=== PATIENT | female | born 1990 | race Caucasian/White ===

== ENCOUNTER 2023-04-09 13:30 | Emergency (ER) | payer BC, OTHER, SELFPAY ==
[2023-04-09 13:37] VITALS: BP 162/98; PULSE 80; RESP 16; TEMP 37.2; O2SAT 100; BMI 37.0
--- NOTE | 2023-04-09 14:28 | US_ITS ---
[place] [id number] Patient Name: ANH CASAREZ MRN: [id number] date: 1990 Sex: F Assigned Patient Location: ER Current Patient Location: ER Accession/Order Number: [id number] Exam Date: 04/09/2023 14:30 Report Date: 04/09/2023 15:08 At the request of: ELIGIO VAZQUEZ Procedure: US OB transvaginal PROCEDURE: US OB transvaginal, 04/09/2023 2:30 PM EDT CLINICAL INDICATIONS: Encounter for first trimester , vaginal bleeding today 5 para 3 AB 1 LMP 03/07/2023 Expected gestational age by LMP: 4 weeks 5 days Expected LUPE by LMP: 12/12/2023 COMPARISON: None TECHNIQUE: Transvaginal first trimester obstetric sonogram, grayscale color and spectral assessment. FINDINGS: Uterus: Normal sonographic morphology. 8.2 cm longitudinally. Endometrial echo complex 0.7 cm. No sign of intrauterine is evident. A focal uterine abnormality is not evident. No pelvic free fluid. Maternal right ovary: 3.6 x 2.4 x 1.9 cm, volume 8 mL. Subcentimeter follicles seen, normal sonographic morphology. Maternal left ovary: 3.8 x 1.3 x 3.0 cm, volume 8 mL. Subcentimeter follicles seen. Normal sonographic morphology. No maternal pelvic mass. IMPRESSION: 1. Normal maternal uterine and ovarian sonographic morphology 2. uncertain location. There is no sign of intrauterine intrauterine documented. Differential considerations include too early to confirm by sonography, complete spontaneous , ectopic . Correlation with serial quantitative beta-hCG and follow-up sonography. 3. No maternal pelvic mass or free fluid Electronically authenticated by: BRAXTON BLANDON Date: 04/09/2023 15:08
--- NOTE | 2023-04-09 15:05 | PC.NURSE ---
Pt and friend back to room 8, no changes in previous assessment and no additional complaints, test's ordered complete and waiting for all tests results, gait steady to room.
[2023-04-09 15:22] LABS: Basophils Absolute Auto 0.1 10^3/uL (0.0-0.1); Basophils Percent Auto 0.7 % (0.2-2.0); Eosinophils Absolute Auto 0.3 10^3/uL (0.0-0.7); Eosinophils Percent Auto 2.2 % (0.9-7.0); Hematocrit 47.5 % (36.0-48.0); Hemoglobin 15.9 g/dL (12.0-16.0); Immature Granulocytes Abs Auto 0.11 10^3/uL (0.00-0.03); Lymphocytes Absolute Auto 2.9 10^3/uL (1.2-3.8); Lymphocytes Percent Auto 25.8 % (20.5-60.0); Mean Corpuscular HGB Conc 33.5 g/dL (29.9-35.2); Mean Corpuscular Hemoglobin 30.4 pg (26.7-34.0); Mean Corpuscular Volume 90.8 fL (81.0-99.0); Mean Platelet Volume 9.9 fL (9.5-13.5); Monocytes Absolute Auto 0.7 10^3/uL (0.3-0.8); Monocytes Percent Auto 6.5 % (1.7-12.0); Neutrophils Absolute Auto 7.2 10^3/uL (1.4-6.5); Neutrophils Percent Auto 63.8 % (43.0-75.0); Platelet Count 276 10^3/uL (150-450); Red Blood Count 5.23 10^6/uL (4.20-5.40); Red Cell Distribution Width 15.9 % (11.0-15.0); White Blood Count 11.3 10^3/uL (4.0-11.0)
[2023-04-09 15:23] LABS: Bilirubin Urine NEGATIVE (NEGATIVE); Blood Urine MODERATE (NEGATIVE); Clarity Urine CLEAR (CLEAR); Color Urine LT. YELLOW (YELLOW); Glucose Urine UA NEGATIVE (NEGATIVE); Ketones Urine NEGATIVE (NEGATIVE); Leukocyte Esterase Urine TRACE (NEGATIVE); Nitrite Urine NEGATIVE (NEGATIVE); Protein Urine NEGATIVE (NEG/TRACE); Specific Gravity Urine <=1.005 (1.005-1.025); Urobilinogen Urine 0.2 EU/dL (0.2-1.0)
[2023-04-09 15:27] LABS: Urine Microscopic Indicated YES
[2023-04-09 15:40] LABS: Bacteria Urine NONE SEEN #/HPF (NONE SEEN); Cast Seen? NONE SEEN #/LPF (NONE SEEN); Crystals Seen? None Seen #/HPF (None Seen); Mucus Urine NONE SEEN (NONE SEEN); RBC Urine 0-2 #/HPF (0-2); Squamous Epithelial Cell Urine NONE SEEN #/LPF (NONE/RARE); Urine Culture Indicated NO; WBC Urine NONE SEEN #/HPF (NONE SEEN)
[2023-04-09 15:54] LABS: Alanine Aminotransferase 21 U/L (14-59); Albumin Level 4.1 g/dL (3.4-5.0); Alkaline Phosphatase 73 U/L (46-116); Anion Gap 12.9; Aspartate Amino Transferase 13 U/L (15-37); BUN Creatinine Ratio 19.8; Bilirubin Total 0.2 mg/dL (0.2-1.0); Calcium 9.4 mg/dL (8.5-10.1); Carbon Dioxide 26.6 mmol/L (21.0-32.0); Chloride 102 mmol/L (98-107); Estimated GFR (African America >60 (>=60); Estimated GFR (Non-African Ame >60 (>=60); Globulin 4.1 g/dL; Glucose 88 mg/dL (74-106); HCG Quantitative 225 mIU/mL; Potassium 3.5 mmol/L (3.5-5.1); Sodium 138 mmol/L (136-145); Total Protein 8.2 g/dL (6.4-8.2)
--- NOTE | 2023-04-09 16:16 | ED.FEMALEGU1 ---
HPI - Female Genitourinary General Chief complaint: Urogenital-Female Stated complaint: 5 WEEKS PREGENCY ISSUES Time Seen by Provider: 04/09/23 14:28 Source: patient Mode of arrival: walk-in History of Present Illness HPI Narrative: He presents to the emergency department complaining of vaginal spotting. Patient states she started spotting last night. She thinks she is approximate 5 weeks . Last menstrual period is unknown but thinks is around 5 weeks ago. She denies any abdominal pain. She does not have an HEMATOLOGIST. Her primary care doctor is Dr. Mcmahan. She does not know what his blood type. She denies any fever, chills, or cough. She denies any chest pain, shortness of breath. She denies any flank pain, hematuria, dysuria. She denies any nausea, vomiting, diarrhea, constipation. She denies any vaginal discharge.She denies any history of STDs. Related Data Allergies Allergy/AdvReac Type Severity Reaction Status Date / Time No Known Drug Allergies Allergy Verified 04/09/23 13:37 Review of Systems ROS Status of ROS 10 or more systems reviewed and unremarkable except as noted in history and below Exam Narrative Exam Narrative: Nurses notes and vital signs reviewed and patient is not hypoxic. General: Nontoxic, Well-appearing and in no apparent distress. Skin: Warm, dry, no pallor noted. No Rash Head: Normocephalic, atraumatic. Neck: Supple, non-tender. Eye: Pupils are equal, round and EOMI. No scleral icterus. Ears, Nose, Mouth, and Throat: TM clear, no posterior oropharynx erythema or nasal mucosal hypertrophy, uvula is mid-line Oral mucosa is moist Cardiovascular: Regular Rate and Rhythm without murmur, gallop or rub. Respiratory: No accessory muscle use or respiratory distress. Lungs are clear to auscultation, no wheezing, rales or rhonchi Chest Wall: no tenderness Back: No midline thoracic or lumbar vertebral tenderness. No CVA tenderness Musculoskeletal: normal ROM, no calf or popliteal tenderness, no lower extremity edema/swelling GI: Abdomen is soft, non-distended. Normal bowel sounds. No masses appreciated. No tenderness to palpation. No rebound, guarding, or rigidity noted. Neurological: A&O x4. No cranial nerve dysfunction observed. No truncal ataxia. Moves all extremities. Sensation intact. Psychiatric: Cooperative and interactive. Normal mood and affect. Constitutional Vital Signs - 24 hr 04/09/23 13:37 Temperature 99.0 F Pulse Rate [Monitor] 80 Respiratory Rate 16 Blood Pressure [Left Arm] 162/98 H Pulse Oximetry 100 Oxygen Delivery Method Room Air Course Vital Signs Vital signs: Vital Signs Temperature 99.0 F 04/09/23 13:37 Pulse Rate 80 04/09/23 13:37 Respiratory Rate 16 04/09/23 13:37 Blood Pressure 162/98 H 04/09/23 13:37 Pulse Oximetry 100 04/09/23 13:37 Oxygen Delivery Method Room Air 04/09/23 13:37 Temperature 99.0 F 04/09/23 13:37 Pulse Rate 80 04/09/23 13:37 Respiratory Rate 16 04/09/23 13:37 Blood Pressure 162/98 H 04/09/23 13:37 Pulse Oximetry 100 04/09/23 13:37 Oxygen Delivery Method Room Air 04/09/23 13:37 MDM - Female Genitourinary MDM Narrative Medical decision making narrative: Blood work was done. The patient's Rh is positive. The patient is hemodynamically stable. All results were discussed with patient. Patient is advised to have pelvic rest, follow-up with primary care doctor and HEMATOLOGIST. Given a prescription to get a quantitative level at 48 hours. She is to return to the emergency department with any problems concerns as discussed. At this time the patient is without objective evidence of an acute process requiring hospitalization or inpatient management. The patient has remained hemodynamically stable. No additional indication for emergent studies at this time. I answered all questions. Discussed discharge instructions including standard anticipatory guidance and what should prompt a return to the emergency department, including if they get worse are not getting better or develops any new or concerning symptoms. I've given them specific time frame in which to follow-up, and who to follow-up with. The patient demonstrates understanding. Patient is nontoxic and stable for discharge with outpatient follow-up. This note was created with the assistance of a speech recognition program. Although the intention is to generate documents that actually reflects the content of the visit, no guarantees can be provided that every mistake has been identified and corrected by editing. Lab Data Attestation: I reviewed the patient's lab results. Labs: Lab Results 04/09/23 04/09/23 04/09/23 Range/Units 14:45 14:50 15:28 WBC 11.3 H (4.0-11.0) 10^3/uL RBC 5.23 (4.20-5.40) 10^6/uL Hgb 15.9 (12.0-16.0) g/dL Hct 47.5 (36.0-48.0) % MCV 90.8 (81.0-99.0) fL MCH 30.4 (26.7-34.0) pg MCHC 33.5 (29.9-35.2) g/dL RDW 15.9 H (11.0-15.0) % Plt Count 276 (150-450) 10^3/uL MPV 9.9 (9.5-13.5) fL Neut % (Auto) 63.8 (43.0-75.0) % Lymph % (Auto) 25.8 (20.5-60.0) % Zavala % (Auto) 6.5 (1.7-12.0) % Eos % (Auto) 2.2 (0.9-7.0) % Baso % (Auto) 0.7 (0.2-2.0) % Neut # (Auto) 7.2 H (1.4-6.5) 10^3/uL Lymph # (Auto) 2.9 (1.2-3.8) 10^3/uL Zavala # (Auto) 0.7 (0.3-0.8) 10^3/uL Eos # (Auto) 0.3 (0.0-0.7) 10^3/uL Baso # (Auto) 0.1 (0.0-0.1) 10^3/uL Abs Immat Gran (auto) 0.11 H (0.00-0.03) 10^3/uL Imm/Tot Granulo (auto) 1.0 H (0.0-0.5) % Sodium 138 (136-145) mmol/L Potassium 3.5 (3.5-5.1) mmol/L Chloride 102 (98-107) mmol/L Carbon Dioxide 26.6 (21.0-32.0) mmol/L Anion Gap 12.9 BUN 16.0 (7.0-18.0) mg/dL Creatinine 0.81 (0.55-1.02) mg/dL Est GFR ( Amer) >60 (>=60) Est GFR (Non-Af Amer) >60 (>=60) BUN/Creatinine Ratio 19.8 Glucose 88 (74-106) mg/dL Calcium 9.4 (8.5-10.1) mg/dL Total Bilirubin 0.2 (0.2-1.0) mg/dL AST 13 L (15-37) U/L ALT 21 (14-59) U/L Alkaline Phosphatase 73 (46-116) U/L Total Protein 8.2 (6.4-8.2) g/dL Albumin 4.1 (3.4-5.0) g/dL Globulin 4.1 g/dL Albumin/Globulin Ratio 1.0 HCG, Quant 225 mIU/mL Urine Color Lt. yellow (YELLOW) Urine Clarity Clear (CLEAR) Urine pH 6.0 (5.0-9.0) Ur Specific [place] <=1.005 A (1.005-1.025) Urine Protein Negative (NEG/TRACE) mg/dL Urine Glucose (UA) Negative (NEGATIVE) mg/dL Urine Ketones Negative (NEGATIVE) mg/dL Urine Occult Blood Moderate A (NEGATIVE) Urine Nitrite Negative (NEGATIVE) Urine Bilirubin Negative (NEGATIVE) Urine Urobilinogen 0.2 (0.2-1.0) EU/dL Ur Leukocyte Esterase Trace A (NEGATIVE) Urine RBC 0-2 (0-2) #/HPF Urine WBC None seen (NONE SEEN) #/HPF Ur Squamous Epith Cells None seen (NONE/RARE) #/LPF Urine Crystals None seen (None Seen) #/HPF Urine Bacteria None seen (NONE SEEN) #/HPF Urine Casts None seen (NONE SEEN) #/LPF Urine Mucus None seen (NONE SEEN) Ur Culture Indicated? No Blood Type A Positive Discharge Plan Discharge Chief Complaint: Urogenital-Female Clinical Impression: Threatened Patient Disposition: Home, Self-Care Time of Disposition Decision: 16:16 Condition: Good Mode of Transportation: Private Vehicle Instructions: Threatened Miscarriage (ED) Additional Instructions: Get the Repeat lab in 2 days as instructed. Follow-up with HEMATOLOGIST as discussed. pelvic rest. Stand Alone Forms: Portal Instructions Referrals: Yasir Mcmahan MD [Primary Care Provider] - 1 week Discharge Date/Time: 04/09/23 16:34
== END 2023-04-09 16:34 | disposition home or self-care (01) ==
PROVIDERS: Emergency Provider Emergency Medicine; PCP Family Medicine
DX: O20.0 Threatened abortion (principal); Z3A.01 Less than 8 weeks gestation of pregnancy
CPT/HCPCS: 36415; 76817; 80053; 81003; 81015; 84702; 85025; 86900; 86901; 99284

== ENCOUNTER 2023-04-11 10:32 | Outpatient (OUT) | payer BC, OTHER, SELFPAY ==
[2023-04-11 11:13] LABS: HCG Quantitative 391 mIU/mL
== END 2023-04-11 10:33 ==
LOC: LAB 10:34
PROVIDERS: PCP Family Medicine; Visit Provider Obstetrics & Gynecology
DX: O46.90 Antepartum hemorrhage, unspecified, unspecified trimester (principal); Z3A.00 Weeks of gestation of pregnancy not specified
CPT/HCPCS: 36415; 84702

== ENCOUNTER 2023-04-13 10:29 | Outpatient (RCR) | payer BC, OTHER, SELFPAY ==
[2023-04-13 11:33] LABS: HCG Quantitative 1156 mIU/mL
== END 2023-05-04 16:01 | disposition home or self-care (01) ==
LOC: LAB 10:29
PROVIDERS: PCP Family Medicine; Visit Provider Obstetrics & Gynecology
DX: O46.90 Antepartum hemorrhage, unspecified, unspecified trimester (principal)
CPT/HCPCS: 36415; 84702

== ENCOUNTER 2023-04-22 09:04 | Emergency (ER) | payer BC, OTHER, SELFPAY ==
[2023-04-22 09:09] VITALS: BP 146/88; PULSE 86; RESP 16; TEMP 37.1; O2SAT 98; BMI 38.1
--- NOTE | 2023-04-22 09:25 | ED_ITS ---
HPI - General Adult General Stated complaint: ISSUES Time Seen by Provider: 04/22/23 09:12 Source: patient Mode of arrival: walk-in Limitations: no limitations History of Present Illness HPI narrative: 32-year-old female who is A1 and had her last period just over eight weeks ago presents to the emergency department for vaginal bleeding. She's been having this essentially every day for numerous weeks. She continues to have this and comes back to the emergency department to be rechecked. She had a beta hCG titer of 225 on April 09, 391 on April 11, and 1156 on April 13. She complains of some minimal left lower abdominal pain. She has her 1st appointment with her MEDIA CONSULTANT [employer] on May 12. No trauma or fever. At times the bleeding is heavy. Sometimes it's manager field service but she has bleeding every day. Related Data Allergies Allergy/AdvReac Type Severity Reaction Status Date / Time No Known Drug Allergies Allergy Verified 04/09/23 13:37 Review of Systems ROS Narrative A ten point review of systems is negative except as noted above. PFSH PFSH Social History Smoking status: Current every day smoker Exam Narrative Exam Narrative: Nurses note and vital signs reviewed and patient is not hypoxic. General: The patient appears well and in no apparent distress. Patient is resting comfortably on cart. Skin: Warm, dry, no pallor noted. There is no rash noted. Head: Normocephalic, atraumatic Eye: Normal conjunctiva, no drainage Ears, Nose, Mouth, and Throat: oral mucosa is moist. Nares patent. Cardiovascular: Regular Rate and Rhythm Respiratory: Patient is in no distress, no accessory muscle use, lungs are clear to auscultation, no wheezing, rales or rhonchi Back: non-tender GI: minimal tenderness in the left lower quadrant Musculoskeletal: The patient has no evidence of calf tenderness, no pitting edema, symmetrical pulses noted bilaterally Neurological: A&O, normal speech Psychiatric: Cooperative Constitutional Vital Signs - 24 hr 04/22/23 09:09 Temperature 98.7 F Pulse Rate [Monitor Radial] 86 Respiratory Rate 16 Blood Pressure [Left Arm] 146/88 H Pulse Oximetry 98 Oxygen Delivery Method Room Air Course Vital Signs Vital signs: Vital Signs Temperature 98.7 F 04/22/23 09:09 Pulse Rate 86 04/22/23 09:09 Respiratory Rate 16 04/22/23 09:09 Blood Pressure 146/88 H 06/23/23 09:09 Pulse Oximetry 98 04/22/23 09:09 Oxygen Delivery Method Room Air 04/22/23 09:09 Temperature 98.7 F 04/22/23 09:09 Pulse Rate 86 04/22/23 09:09 Respiratory Rate 16 04/22/23 09:09 Blood Pressure 146/88 H 04/22/23 09:09 Pulse Oximetry 98 04/22/23 09:09 Oxygen Delivery Method Room Air 04/22/23 09:09 Medical Decision Making MDM Narrative Medical decision making narrative: Today's hCG titer is 11,269 which is up from 1156 on April 13. Ultrasound shows IUP without visible heartbeat. Findings are discussed thoroughly with the patient's [employer] and the patient. She will be discharged home with follow-up in the office. She'll return for any worsening symptoms. Treatment diagnosis and follow up are discussed thoroughly with the patient. Blood type is A positive. Differential Diagnosis Differential Diagnosis: intrauterine , ectopic , threatened miscarriage, miscarri Medical Records Medical records reviewed: Yes I reviewed the patient's medical records Lab Data Lab results reviewed: Yes I reviewed the patient's lab results Labs: Lab Results 04/22/23 Range/Units 09:28 WBC 8.1 (4.0-11.0) 10^3/uL RBC 5.14 (4.20-5.40) 10^6/uL Hgb 15.6 (12.0-16.0) g/dL Hct 46.4 (36.0-48.0) % MCV 90.3 (81.0-99.0) fL MCH 30.4 (26.7-34.0) pg MCHC 33.6 (29.9-35.2) g/dL RDW 15.7 H (11.0-15.0) % Plt Count 217 (150-450) 10^3/uL MPV 9.7 (9.5-13.5) fL Neut % (Auto) 63.8 (43.0-75.0) % Lymph % (Auto) 23.9 (20.5-60.0) % Pender % (Auto) 8.1 (1.7-12.0) % Eos % (Auto) 2.1 (0.9-7.0) % Baso % (Auto) 0.7 (0.2-2.0) % Neut # (Auto) 5.2 (1.4-6.5) 10^3/uL Lymph # (Auto) 1.9 (1.2-3.8) 10^3/uL Pender # (Auto) 0.7 (0.3-0.8) 10^3/uL Eos # (Auto) 0.2 (0.0-0.7) 10^3/uL Baso # (Auto) 0.1 (0.0-0.1) 10^3/uL Abs Immat Gran (auto) 0.11 H (0.00-0.03) 10^3/uL Imm/Tot Granulo (auto) 1.4 H (0.0-0.5) % Sodium 136 (136-145) mmol/L Potassium 4.3 (3.5-5.1) mmol/L Chloride 102 (98-107) mmol/L Carbon Dioxide 26.1 (21.0-32.0) mmol/L Anion Gap 12.2 BUN 10.0 (7.0-18.0) mg/dL Creatinine 0.69 (0.55-1.02) mg/dL Est GFR ( Amer) >60 (>=60) Est GFR (Non-Af Amer) >60 (>=60) BUN/Creatinine Ratio 14.5 Glucose 104 (74-106) mg/dL Calcium 9.0 (8.5-10.1) mg/dL HCG, Quant 82394 mIU/mL Discharge Plan Discharge Clinical Impression: Threatened miscarriage Time of Disposition Decision: 11:35 Mode of Transportation: Private Vehicle Instructions: Threatened Miscarriage (ED) Additional Instructions: no intercourse or heavy work Stand Alone Forms: Portal Instructions Referrals: Yasir Mcmahan MD [Primary Care Provider] - 1 week
[2023-04-22 09:33] LABS: Basophils Absolute Auto 0.1 10^3/uL (0.0-0.1); Basophils Percent Auto 0.7 % (0.2-2.0); Eosinophils Absolute Auto 0.2 10^3/uL (0.0-0.7); Eosinophils Percent Auto 2.1 % (0.9-7.0); Hematocrit 46.4 % (36.0-48.0); Hemoglobin 15.6 g/dL (12.0-16.0); Immature Granulocytes Abs Auto 0.11 10^3/uL (0.00-0.03); Immature Granulocytes Pct Auto 1.4 % (0.0-0.5); Lymphocytes Absolute Auto 1.9 10^3/uL (1.2-3.8); Lymphocytes Percent Auto 23.9 % (20.5-60.0); Mean Corpuscular HGB Conc 33.6 g/dL (29.9-35.2); Mean Corpuscular Hemoglobin 30.4 pg (26.7-34.0); Mean Corpuscular Volume 90.3 fL (81.0-99.0); Mean Platelet Volume 9.7 fL (9.5-13.5); Monocytes Absolute Auto 0.7 10^3/uL (0.3-0.8); Monocytes Percent Auto 8.1 % (1.7-12.0); Neutrophils Absolute Auto 5.2 10^3/uL (1.4-6.5); Neutrophils Percent Auto 63.8 % (43.0-75.0); Platelet Count 217 10^3/uL (150-450); Red Blood Count 5.14 10^6/uL (4.20-5.40); Red Cell Distribution Width 15.7 % (11.0-15.0); White Blood Count 8.1 10^3/uL (4.0-11.0)
[2023-04-22 10:09] LABS: Anion Gap 12.2; BUN Creatinine Ratio 14.5; Carbon Dioxide 26.1 mmol/L (21.0-32.0); Chloride 102 mmol/L (98-107); Estimated GFR (African America >60 (>=60); Estimated GFR (Non-African Ame >60 (>=60); Glucose 104 mg/dL (74-106); HCG Quantitative 11269 mIU/mL; Potassium 4.3 mmol/L (3.5-5.1); Sodium 136 mmol/L (136-145)
--- NOTE | 2023-04-22 10:11 | US_ITS ---
[address] [address] Patient Name: ANH CASAREZ MRN: [id number] date: 1990 Sex: F Assigned Patient Location: ER Current Patient Location: ER Accession/Order Number: [id number] Exam Date: 04/22/2023 10:12 Report Date: 04/22/2023 11:15 At the request of: PATSY GRIMALDO Procedure: US OB transvaginal PROCEDURE: US OB transvaginal, 04/22/2023 10:12 AM EDT CLINICAL INDICATIONS: Encounter for first trimester , vaginal bleeding for 2 weeks 5 para 3 Uncertain LMP COMPARISON: 04/09/2023 TECHNIQUE: Transvaginal first trimester obstetric sonogram, grayscale color assessment. FINDINGS: Intrauterine gestational sac, embryonic pole, normal yolk sac are evident. Convincing cardiac activity could not be documented by sonographic surveillance, M mode Doppler. Mean gestational sac size: 1.43 cm Embryonic crown-rump length: 0.20 cm. Sonographic gestational age: 5 weeks 5 days +/- 3 days Sonographic LUPE: 12/18/2023 No significant perigestational hemorrhage. No focal maternal uterine abnormality is evident. 3.2 cm transvaginal cervical length, closed, trace fluid in the endocervical canal. Maternal right ovary: 3.1 x 2.1 x 2.2 cm, volume 8 mL. Subcentimeter follicle seen. Normal sonographic morphology. Maternal left ovary: 3.6 x 1.8 x 2.4 cm volume 8 mL. A 2.0 cm complex maternal left ovarian corpus luteal cyst is favored. IMPRESSION: 1. Single intrauterine , uncertain viability. There is interval development of intrauterine gestational sac, normal yolk sac, embryonic pole. Cardiac activity could not be documented. 11 day follow-up sonography recommended in this regard. 2. Embryonic crown-rump length of 0.2 cm consistent with 5 week 5 day gestation +/- 5 days 3. Sonographic LUPE 12/18/2023 4. No perigestational hemorrhage. Trace fluid in the endocervical canal. 5. Normal maternal right ovarian sonographic morphology 6. Complex 2.0 cm maternal left ovarian corpus luteal cyst. Electronically authenticated by: BRAXTON BLANDON Date: 04/22/2023 11:15
[2023-04-22 11:42] VITALS: BP 128/84; PULSE 79; RESP 16; O2SAT 97
== END 2023-04-22 11:47 | disposition home or self-care (01) ==
PROVIDERS: Emergency Provider Emergency Medicine; PCP Family Medicine
DX: O20.0 Threatened abortion (principal); Z3A.01 Less than 8 weeks gestation of pregnancy; F17.210 Nicotine dependence, cigarettes, uncomplicated
CPT/HCPCS: 36415; 76817; 80048; 84702; 85025; 99284

== ENCOUNTER 2023-04-24 12:11 | Emergency (ER) | payer BC, OTHER, SELFPAY ==
[2023-04-24 12:21] VITALS: BP 138/90; PULSE 89; RESP 18; TEMP 36.4; O2SAT 100; BMI 38.1
--- NOTE | 2023-04-24 12:31 | US_ITS ---
The [address] [address] Patient Name: ANH CASAREZ MRN: [id number] date: 1990 Sex: F Assigned Patient Location: ED.MAIN Current Patient Location: ER Accession/Order Number: [id number] Exam Date: 04/24/2023 13:24 Report Date: 04/24/2023 14:27 At the request of: PATSY GRIMALDO Procedure: US OB <= 14 weeks fetus PELVIC ULTRASOUND: 04/24/2023 11:21 AM PDT HISTORY: bleeding. TECHNIQUE: Real-time endovaginal sonography of the pelvis was performed using grayscale and Doppler ultrasound. COMPARISON: Ultrasound exam 04/22/2023 and 04/09/2023. FINDINGS: UTERUS/ENDOMETRIUM: -Significant interval decrease in size of the gestational sac compared with 04/22/2023 which now measures 4 mm in greatest dimension, previously mean sac diameter of 14 mm. Yolk sac and embryonic pole are normally visualized. -Trace fluid within the endometrium RIGHT OVARY: Normal appearance of the parenchyma and follicles. Size: 3.9 x 2.1 x 2.6 cm. Volume: 10.9 cc. No adnexal masses. The Doppler signal is within normal limits. LEFT OVARY: Normal appearance of the parenchyma and follicles. Size: 4.1 x 1.8 x 2.5 cm. Volume: 9.4 cc. No adnexal masses. The Doppler signal is within normal limits. PELVIC FLUID: No significant free fluid. IMPRESSION: Significantly decreased size of the gestational sac with fluid in the endometrium and loss of visualization of yolk sac and embryonic pole. Findings are diagnostic of failed . Electronically authenticated by: DAVE GUILLAUME Date: 04/24/2023 14:27
--- NOTE | 2023-04-24 12:46 | ED_ITS ---
HPI - General Chief complaint: Vaginal Bleeding Stated complaint: ISSUES 5WKS 5 DAYS Time Seen by Provider: 04/24/23 12:14 Source: patient Source comment: patient Mode of arrival: walk-in Limitations: no limitations History of Present Illness HPI Narrative: 32-year-old female presents for vaginal bleeding. She was seen here two days ago and had an hCG titer of eleven thousand. IVP was noted but no heartbeat because it was too early. Since then she's had continued bleeding and she came in here. No trauma or fever. The cramping is mild. Related Data Allergies Allergy/AdvReac Type Severity Reaction Status Date / Time No Known Drug Allergies Allergy Verified 04/09/23 13:37 Review of Systems ROS Narrative A ten point review of systems is negative except as noted above. PFSH PFSH Social History Smoking status: Current every day smoker Exam Narrative Exam Narrative: Nurses note and vital signs reviewed and patient is not hypoxic. General: The patient appears well and in no apparent distress. Patient is resting comfortably on cart. Skin: Warm, dry, no pallor noted. There is no rash noted. Head: Normocephalic, atraumatic Eye: Normal conjunctiva, no drainage Ears, Nose, Mouth, and Throat: oral mucosa is moist. Nares patent. Cardiovascular: Regular Rate and Rhythm Respiratory: Patient is in no distress, no accessory muscle use, lungs are clear to auscultation, no wheezing, rales or rhonchi Back: non-tender GI: soft and nontender Musculoskeletal: The patient has no evidence of calf tenderness, no pitting edema, symmetrical pulses noted bilaterally Neurological: A&O, normal speech Psychiatric: Cooperative Constitutional Vital Signs - 24 hr 04/24/23 12:21 04/24/23 13:56 Temperature 97.6 F Pulse Rate 77 Pulse Rate [Monitor] 89 Respiratory Rate 18 18 Blood Pressure 130/88 H Blood Pressure [Right Arm] 138/90 H Pulse Oximetry 100 99 Oxygen Delivery Method Room Air Course Vital Signs Vital signs: Vital Signs Temperature 97.6 F 04/24/23 12:21 Pulse Rate 89 04/24/23 12:21 Respiratory Rate 18 04/24/23 12:21 Blood Pressure 138/90 H 04/24/23 12:21 Pulse Oximetry 100 04/24/23 12:21 Oxygen Delivery Method Room Air 06/25/23 12:21 Temperature 97.6 F 04/24/23 12:21 Pulse Rate 77 04/24/23 13:56 Respiratory Rate 18 04/24/23 13:56 Blood Pressure 130/88 H 04/24/23 13:56 Pulse Oximetry 99 04/24/23 13:56 Oxygen Delivery Method Room Air 04/24/23 12:21 MDM - OB/Uterine Contractions MDM Narrative Medical decision making narrative: ultrasound per radiologist shows failed . 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 Treatment diagnosis and follow-up were discussed with the patient. Differential Diagnosis Differential diagnosis: Likely other (incomplete miscarriage, threatened miscarriage, complete miscarriage, bleeding in ) Discharge Plan Discharge Chief Complaint: Vaginal Bleeding Clinical Impression: Miscarriage Patient Disposition: Home, Self-Care Time of Disposition Decision: 14:35 Condition: Good Mode of Transportation: Private Vehicle Instructions: Miscarriage (ED) Stand Alone Forms: Portal Instructions Referrals: Yasir Mcmahan MD [Primary Care Provider] - 1 week
[2023-04-24 13:56] VITALS: BP 130/88; PULSE 77; RESP 18; O2SAT 99
== END 2023-04-24 14:45 | disposition home or self-care (01) ==
PROVIDERS: Emergency Provider Emergency Medicine; PCP Family Medicine
DX: O03.9 Complete or unspecified spontaneous abortion without complication (principal); F17.210 Nicotine dependence, cigarettes, uncomplicated
CPT/HCPCS: 76801; 99284

== ENCOUNTER 2023-09-05 09:30 | Emergency (ER) | payer BC, OTHER, SELFPAY ==
[2023-09-05] VITALS (8 sets, daily range): BP systolic 156–198; BP diastolic 102–142; PULSE 76–105; RESP 12–22; TEMP 37.4; O2SAT 92–97; BMI 37.5
--- NOTE | 2023-09-05 09:52 | ECG_ITS ---
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
--- NOTE | 2023-09-05 09:53 | ED.GENADUL1 ---
HPI - General Adult General Chief complaint: Recheck/Abnormal Lab/Rx Stated complaint: HIGH BLOOD PRESSURE LEVELS Time Seen by Provider: 09/05/23 09:44 Source: patient Mode of arrival: walk-in Limitations: no limitations History of Present Illness HPI narrative: 33-year-old female presents for high blood pressure. She has a long-standing history of hypertension but doesn't take medication for it. She was on a beta mary and didn't like the way it made her feel so she stopped taking it. She hasn't taken any medication for about a year. She doesn't complain of chest pain but occasionally feels dizzy when she is standing at work. Related Data Previous Rx's Medication Instructions Recorded lisinopril 10 mg tablet 10 mg PO DAILY #30 tabs 09/05/23 Allergies Allergy/AdvReac Type Severity Reaction Status Date / Time No Known Drug Allergies Allergy Verified 04/09/23 13:37 Review of Systems ROS Narrative A ten point review of systems is negative except as noted above. PFSH PFSH Social History Smoking status: Current every day smoker Exam Narrative Exam Narrative: Nurses note and vital signs reviewed and patient is not hypoxic. General: The patient appears well and in no apparent distress. Patient is resting comfortably on cart. Skin: Warm, dry, no pallor noted. There is no rash noted. Head: Normocephalic, atraumatic Eye: Normal conjunctiva, no drainage Ears, Nose, Mouth, and Throat: oral mucosa is moist. Nares patent. Cardiovascular: Regular Rate and Rhythm Respiratory: Patient is in no distress, no accessory muscle use, lungs are clear to auscultation, no wheezing, rales or rhonchi Back: non-tender GI: soft and nontender Musculoskeletal: The patient has no evidence of calf tenderness, no pitting edema, symmetrical pulses noted bilaterally Neurological: A&O, normal speech Psychiatric: Cooperative Constitutional Vital Signs, click to edit/add: Last Vital Signs Temp 99.3 F 09/05/23 09:37 Pulse 105 H 09/05/23 10:50 Resp 17 09/05/23 10:50 BP 156/102 H 09/05/23 10:48 Pulse Ox 95 09/05/23 10:50 O2 Del Method Room Air 09/05/23 09:37 Course Vital Signs Vital signs: Vital Signs Temperature 99.3 F 09/05/23 09:37 Pulse Rate 103 H 09/05/23 09:37 Respiratory Rate 22 09/05/23 09:37 Blood Pressure 182/110 H 09/05/23 09:37 Pulse Oximetry 97 09/05/23 09:37 Oxygen Delivery Method Room Air 09/05/23 09:37 Temperature 99.3 F 09/05/23 09:37 Pulse Rate 105 H 09/05/23 10:50 Respiratory Rate 17 09/05/23 10:50 Blood Pressure 156/102 H 09/05/23 10:48 Pulse Oximetry 95 09/05/23 10:50 Oxygen Delivery Method Room Air 09/05/23 09:37 Medical Decision Making MDM Narrative Medical decision making narrative: the patient presents with hypertension. She was given IV hydralazine and her blood pressure was coming down. She is being prescribed lisinopril and will call her PCP for blood pressure rechecked. Treatment diagnosis and follow-up were discussed with the patient. Differential Diagnosis Differential Diagnosis: hypertension, acute kidney injury Lab Data Lab results reviewed: Yes I reviewed the patient's lab results Labs: Lab Results 09/05/23 Range/Units 10:17 WBC 10.7 (4.0-11.0) 10^3/uL RBC 4.55 (4.20-5.40) 10^6/uL Hgb 13.9 (12.0-16.0) g/dL Hct 41.5 (36.0-48.0) % MCV 91.2 (81.0-99.0) fL MCH 30.5 (26.7-34.0) pg MCHC 33.5 (29.9-35.2) g/dL RDW 14.5 (11.0-15.0) % Plt Count 246 (150-450) 10^3/uL MPV 10.0 (9.5-13.5) fL Neut % (Auto) 63.7 (43.0-75.0) % Lymph % (Auto) 26.8 (20.5-60.0) % Divide % (Auto) 6.1 (1.7-12.0) % Eos % (Auto) 2.3 (0.9-7.0) % Baso % (Auto) 0.7 (0.2-2.0) % Neut # (Auto) 6.8 H (1.4-6.5) 10^3/uL Lymph # (Auto) 2.9 (1.2-3.8) 10^3/uL Divide # (Auto) 0.7 (0.3-0.8) 10^3/uL Eos # (Auto) 0.3 (0.0-0.7) 10^3/uL Baso # (Auto) 0.1 (0.0-0.1) 10^3/uL Abs Immat Gran (auto) 0.04 H (0.00-0.03) 10^3/uL Imm/Tot Granulo (auto) 0.4 (0.0-0.5) % Sodium 140 (136-145) mmol/L Potassium 3.2 L (3.5-5.1) mmol/L Chloride 104 (98-107) mmol/L Carbon Dioxide 28.0 (21.0-32.0) mmol/L Anion Gap 11.2 BUN 13.0 (7.0-18.0) mg/dL Creatinine 0.73 (0.55-1.02) mg/dL Est GFR ( Amer) >60 (>=60) Est GFR (Non-Af Amer) >60 (>=60) BUN/Creatinine Ratio 17.8 Glucose 117 H (74-106) mg/dL Calcium 8.6 (8.5-10.1) mg/dL ECG Data Attestation: I personally reviewed and interpreted this ECG as follows: (EKG on my interpretation shows normal sinus rhythm with no acute changes and a rate of 79.) Critical Care Time Critical Care Time Critical Care Time: Yes Total Critical Care Time: 35 Attestation: Due to the high probability of sudden and clinically significant deterioration in the patient's condition he/she required the highest level of my preparedness to intervene urgently I provided critical care time including documentation time, medication orders and management, reevaluation, vital sign assessment, ordering and reviewing of lab tests, ordering and reviewing of x-ray studies, and admission orders. Aggregate critical care time is 35 minutes including only time during which I was engaged in work directly related to his/her care and did not include time spent treating other patients simultaneously. Discharge Plan Discharge Chief Complaint: Recheck/Abnormal Lab/Rx Clinical Impression: Hypertension Patient Disposition: Home, Self-Care Time of Disposition Decision: 11:00 Condition: Good Mode of Transportation: Private Vehicle Prescriptions / Home Meds: New lisinopril 10 mg tablet 10 mg PO DAILY Qty: 30 0RF Instructions: Chronic Hypertension (ED), Low-Sodium Diet (ED) Additional Instructions: call PCP today for follow-up appointment for the next few days Stand Alone Forms: Portal Instructions Referrals: Yasir Mcmahan MD [Primary Care Provider] - 1 week
[2023-09-05 10:36] LABS: Basophils Absolute Auto 0.1 10^3/uL (0.0-0.1); Basophils Percent Auto 0.7 % (0.2-2.0); Eosinophils Absolute Auto 0.3 10^3/uL (0.0-0.7); Eosinophils Percent Auto 2.3 % (0.9-7.0); Hematocrit 41.5 % (36.0-48.0); Hemoglobin 13.9 g/dL (12.0-16.0); Immature Granulocytes Abs Auto 0.04 10^3/uL (0.00-0.03); Immature Granulocytes Pct Auto 0.4 % (0.0-0.5); Lymphocytes Absolute Auto 2.9 10^3/uL (1.2-3.8); Lymphocytes Percent Auto 26.8 % (20.5-60.0); Mean Corpuscular HGB Conc 33.5 g/dL (29.9-35.2); Mean Corpuscular Hemoglobin 30.5 pg (26.7-34.0); Mean Corpuscular Volume 91.2 fL (81.0-99.0); Monocytes Absolute Auto 0.7 10^3/uL (0.3-0.8); Monocytes Percent Auto 6.1 % (1.7-12.0); Neutrophils Absolute Auto 6.8 10^3/uL (1.4-6.5); Neutrophils Percent Auto 63.7 % (43.0-75.0); Platelet Count 246 10^3/uL (150-450); Red Blood Count 4.55 10^6/uL (4.20-5.40); Red Cell Distribution Width 14.5 % (11.0-15.0); White Blood Count 10.7 10^3/uL (4.0-11.0)
[2023-09-05] MEDS: HYDRALAZINE HCL 20 MG/ML VIAL 10 MG IVP (10:45)
[2023-09-05 10:53] LABS: Anion Gap 11.2; BUN Creatinine Ratio 17.8; Calcium 8.6 mg/dL (8.5-10.1); Chloride 104 mmol/L (98-107); Estimated GFR (African America >60 (>=60); Estimated GFR (Non-African Ame >60 (>=60); Glucose 117 mg/dL (74-106); Potassium 3.2 mmol/L (3.5-5.1); Sodium 140 mmol/L (136-145)
== END 2023-09-05 11:22 | disposition home or self-care (01) ==
PROVIDERS: Emergency Provider Emergency Medicine; PCP Family Medicine
DX: I10 Essential (primary) hypertension (principal); F17.210 Nicotine dependence, cigarettes, uncomplicated
CPT/HCPCS: 36415; 80048; 85025; 93005; 96374; 99284

== ENCOUNTER 2023-09-06 22:23 | Emergency (ER) | payer BC, OTHER, SELFPAY ==
[2023-09-06] VITALS (10 sets, daily range): BP systolic 141–163; BP diastolic 97–130; PULSE 84–102; RESP 12–19; TEMP 37; O2SAT 97; BMI 37.5
--- NOTE | 2023-09-06 23:31 | ECG_ITS ---
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
--- NOTE | 2023-09-06 23:31 | ED.DIZZY1 ---
HPI - Dizziness General Chief Complaint: Dizziness Stated Complaint: Hypertension Time Seen by Provider: 09/06/23 22:41 Source: patient Mode of arrival: walk-in History of Present Illness HPI Narrative: This 33 year old female with a history of hypertension, tobacco use and he was overweight presents for evaluation of dizziness with right hand and arm tingling. The patient was seen in this emergency department yesterday for evaluation of elevated blood pressure. She states that she was formally on a beta mary and she did not like the way that made her feel. She had called her family physician but cannot get in until September. She states that she was seen here yesterday and given a prescription for lisinopril. She took one yesterday and one again today. This evening when she was getting ready for work she started feeling dizzy and her right hand and arm became numb and tingly. She states she felt like she was going to pass out. She did not pass out at that time. She took her blood pressure and her blood pressure was in the 120s over 80s and her pulse was 113. She states this is very low for her. She denies any chest pain but states she did have some chest pain earlier in the day. She has no shortness of breath. She is feeling somewhat better after coming to the emergency department. Her dizziness has somewhat resolved. She denies any abdominal pain or back pain. She has no headache or neck pain. She has no slurred speech confusion or other neurologic deficits. Related Data Previous Rx's Medication Instructions Recorded lisinopril 10 mg tablet 10 mg PO DAILY #30 tabs 09/05/23 Allergies Allergy/AdvReac Type Severity Reaction Status Date / Time No Known Drug Allergies Allergy Verified 04/09/23 13:37 Review of Systems ROS Status of ROS 10 or more systems reviewed and unremarkable except as noted in history and below [facility] Social History Smoking status: Current every day smoker Exam Narrative Exam Narrative: Nurses note and vital signs reviewed and patient is not hypoxic. 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 There is no rash noted. Head: Normocephalic, atraumatic Eye: Normal conjunctiva, no drainage, EOMI. PERRL Ears, Nose, Mouth, and Throat: oral mucosa is moist. Cardiovascular: Regular Rate and Rhythm S1S2, Pulses are brisk and equal bilaterally, patient was noted to become more tachycardic when sitting up-orthostatic vital signs;..................... Respiratory: Patient is in no distress, no accessory muscle use, lungs are clear to auscultation, no wheezing, rales or rhonchi Back: non-tender, no CVA tenderness bilaterally to percussion. GI: Normal bowel sounds, no tenderness to palpation, no masses appreciated. No rebound, guarding, or rigidity noted. Musculoskeletal: The patient has no evidence of calf tenderness Neurological: A&O x4, normal speech, No facial droop, upper or lower extremities and sensation is intact, negative pronator drift, positive rapid alternating hand movements, NIH stroke scale is 0 Psychiatric: Cooperative Constitutional Vital Signs, click to edit/add: Last Vital Signs Temp 98.6 F 09/06/23 22:52 Pulse 71 09/07/23 00:50 Resp 16 09/07/23 00:50 BP 131/92 H 09/07/23 00:30 Pulse Ox 97 09/06/23 22:52 O2 Del Method Room Air 09/06/23 22:52 Course Vital Signs Vital signs: Vital Signs Temperature 98.6 F 09/06/23 22:52 Pulse Rate 100 H 09/06/23 22:52 Respiratory Rate 16 09/06/23 22:52 Blood Pressure 152/120 H 09/06/23 22:52 Pulse Oximetry 97 09/06/23 22:52 Oxygen Delivery Method Room Air 09/06/23 22:52 Temperature 98.6 F 09/06/23 22:52 Pulse Rate 71 09/07/23 00:50 Respiratory Rate 16 09/07/23 00:50 Blood Pressure 131/92 H 09/07/23 00:30 Pulse Oximetry 97 09/06/23 22:52 Oxygen Delivery Method Room Air 09/06/23 22:52 MDM - Dizziness MDM Narrative Medical decision making narrative: This 33-year-old female with a history of hypertension who was formally on blood pressure medications but has not been on them for an extended period of time and was seen in this emergency department yesterday and given a Rx for Lisinopril 10mg after getting a dose of IV hydralazine for high blood pressure. She stated that she cannot get into to her doctor until September. She has taken doses of the 10mg Lisinopril for her blood pressure so far. Tonight while getting ready for work she had an episode of dizziness and near syncope. Patient states she was getting ready for work and started to feel dizzy like she was going to pass out and had some tingling of her right hand and arm. She took her blood pressure at that time. Her pulse was 113 and her blood pressure was in the 120s over 80s. She states this is quite low for her. Upon arrival to the emergency department her blood pressure was in the 150s over 100s. She was mildly tachycardic upon sitting up during my exam. Orthostatic vital signs were as follows, blood pressure lying 152/100 heart rate 85, blood pressure sitting 147/97 heart rate 86 blood pressure standing 143/104 with a pulse of 93. She was mildly orthostatic based on these vital signs. Her physical exam was otherwise benign. Her neuro exam is normal. EKG done upon arrival is a sinus rhythm at 84 beats for minute. I reviewed her labs from yesterday which were normal with the exception of a potassium of 3.2. Her troponin today is normal. She received IV fluids and on reevaluation her blood pressure is down into the 130s over 90s she is feeling much better. We discussed the lisinopril prescription that she had taken twice. She states that she thinks she will continue taking it until she can become adjusted to it but requested something else in case she has similar symptoms in the future. She'll be given a prescription for Norvasc 5 mg to use on a daily basis as needed if she has recurrent reactions to the lisinopril. Lab Data Attestation: I reviewed the patient's lab results. Labs: Lab Results 09/06/23 Range/Units 23:48 Troponin I High Sens <4.0 L (4.0-51.3) pg/mL ECG Data Attestation: I personally reviewed and interpreted this ECG as follows: (Sinus rhythm at 84 beats for minute, normal axis, normal intervals, no acute ST segment elevation or T-wave inversion) Discharge Plan Discharge Chief Complaint: Dizziness Clinical Impression: Hypertension Patient Disposition: Home, Self-Care Time of Disposition Decision: 00:58 Condition: Good Prescriptions / Home Meds: No Action lisinopril 10 mg tablet 10 mg PO DAILY Qty: 30 0RF Instructions: How to Take a Blood Pressure Reading (ED), Chronic Hypertension (ED), Hypertension (ED) Stand Alone Forms: Portal Instructions Referrals: Yasir Mcmahan MD [Primary Care Provider] - 1 week
[2023-09-07] VITALS (8 sets, daily range): BP systolic 131–150; BP diastolic 92–102; PULSE 71–98; RESP 11–32
[2023-09-07 00:11] LABS: Troponin I High Sensitivity <4.0 pg/mL (4.0-51.3)
[2023-09-07] MEDS: 0.9 % SODIUM CHLORIDE 1,000 ML 1000 ML IV (00:12)
[2023-09-07] MEDS: ONDANSETRON PF 4 MG/2 ML VIAL IV (00:12)
== END 2023-09-07 01:15 | disposition home or self-care (01) ==
PROVIDERS: Emergency Provider Emergency Medicine; PCP Family Medicine
DX: I10 Essential (primary) hypertension (principal); Z79.899 Other long term (current) drug therapy; F17.210 Nicotine dependence, cigarettes, uncomplicated; E66.3 Overweight; Z68.37 Body mass index [BMI] 37.0-37.9, adult
CPT/HCPCS: 36415; 84484; 93005; 96374; 99284

== ENCOUNTER 2023-11-04 15:04 | Outpatient (OUT) | payer OTHER, SELFPAY ==
--- OUTSIDE RECORDS SUMMARY | 2023-11-04 15:08 | XMS_ITS | CCD ---
Author Name Unknown Address [address] [place] [address] Organization [facility] Care Team Providers Care Bottom Filler Name Role Phone BIRD, DR PRICILA Cox Primary Care Unavailable CARLITA, DANIEL Admitting Unavailable CARLITA, DANIEL Attending Unavailable CARLITA, DANIEL Consulting Unavailable NADJACKY, DR PRICILA Cox Primary Care Unavailable DILLAN, PATSY Gonzalez Admitting Unavailable DILLAN, PATSY Gonzalez Attending Unavailable PATSY GRIMALDO Consulting Unavailable BIRD, DR PRICILA Cox Primary Care Unavailable FLACA, DR EMMANUEL Ashton Admitting Unavailable FLACA, DR EMMANUEL Ashton Attending Unavailable FLACA, DR EMMANUEL Ashton Consulting Unavailable NADEREPoli, DR PRICILA Cox Admitting Unavailable NADEREPoli, DR PRICILA Cox Attending Unavailable NADEREPoli, DR PRICILA Cox Primary Care Unavailable CHERI, DR RENETTA Ashton Consulting Unavailable NADERER, DR PRICILA Cox Consulting Unavailable NADERER, DR PRICILA Cox Admitting Unavailable NADERER, DR PRICILA Cox Attending Unavailable NADERER, DR PRICILA Cox Primary Care Unavailable NADERER, DR PRICILA Cox Consulting Unavailable Allergies Allergy Classification Reported Allergen(s) Allergy Type Date of Onset Reaction(s) Facility (1 source) Adrenergic Beta-Antagonists Drug allergy (disorder) 09-04-2022 [facility] (1 source) QUEtiapine Drug Allergy [facility] Problems Active Problems Problem Classification Problem Date Documented Da te Episodic/Chronic Esophageal disorders (1 source) Gastro-esophageal reflux disease without esophagitis; Translations: [GERD WITHOUT ESOPHAGITIS] Onset: 02-09-2022 Chronic Essential hypertension (1 source) Essential (primary) hypertension; Translations: [ESSENTIAL PRIMARY HYPERTENSION] Onset: 01-19-2022 Chronic Gastrointestinal hemorrhage (4 sources) Hemorrhage of anus and rectum; Translations: [HEMORRHAGE OF ANUS AND RECTUM] Onset: 09-04-2022 Episodic Substance-related disorders (1 source) Nicotine dependence, cigarettes, uncomplicated; Translations: [NICOTINE DEPEND CIGARETTES UNCOMP] Onset: 09-07-2022 Chronic Thyroid disorders (1 source) Nontoxic goiter, unspecified; Translations: [NONTOXIC GOITER UNSPECIFIED] Onset: 02-09-2022 Chronic Past or Other Problems Problem Classification Problem Date Documented Da te Episodic/Chronic Abdominal hernia (1 source) Diaphragmatic hernia without obstruction or gangrene; Translations: [DIAPH HERNIA W/O OBST/GANGRENE] Onset: 02-09-2022 Episodic Conditions associated with dizziness or vertigo (4 sources) Dizziness and giddiness; Translations: [DIZZINESS AND GIDDINESS] Onset: 01-18-2022 Episodic Genitourinary symptoms and ill-defined conditions (4 sources) Dysuria; Translations: [DYSURIA] Onset: 03-09-2022 Episodic Inflammatory diseases of female pelvic organs (1 source) Acute vaginitis; Translations: [ACUTE VAGINITIS] Onset: 03-16-2022 Episodic Other aftercare (1 source) Other moth exterminator (current) drug therapy; Translations: [OTH CUT OFF SAW TENDER METAL CURRENT DRUG THERAPY] Onset: 01-19-2022 Episodic Other gastrointestinal disorders (4 sources) Dysphagia, unspecified; Translations: [DYSPHAGIA UNSPECIFIED] Onset: 02-05-2022 Episodic Other injuries and conditions due to external causes (4 sources) Foreign body in vulva and vagina, initial encounter; Translations: [FOREIGN BODY VULVA VAGINA INIT ENC] Onset: 03-14-2022 Episodic Urinary tract infections (1 source) Urinary tract infection, site not specified; Translations: [UTI SITE NOT SPECIFIED] Onset: 03-16-2022 Episodic Results Test Name Value Interpretation Reference Range Facility CBC AUTO DIFFon 09-05-2022 BASO # 0.1 103/ul Normal 0.0-0.1 [facility] Comment on above: Performed By: #### DANILO WAYNE ERUR #### [facility] [address] [address] [address] Alexis Petersen Basophils/100 WBC (Bld) 0.6 % Normal 0.2-2.0 [facility] Comment on above: Performed By: #### DANILO WAYNE ERUR #### [facility] [address] [address] [address] Alexis Petersen EO # 0.3 103/ul Normal 0.0-0.7 [facility] Comment on above: Performed By: #### P DANILO TOMLIN, ERUR #### [facility] [address] [place] [address] Dr. Alexis Petersen Eosinophils/100 WBC (Bld) 2.5 % Normal 0.9-7.0 [facility] Comment on above: Performed By: #### P DANILO TOMLIN, ERUR #### [facility] [address] [place] [address] Dr. Alexis Petersen Erythrocyte distribution width (RBC) [Ratio] 15.9 % Critically high 11.0-15.0 [facility] Comment on above: Performed By: #### P DANILO TOMLIN, ERUR #### [facility] [address] [place] [address] Dr. Alexis Petersen Hematocrit (Bld) [Volume fraction] 42.6 % Normal 36.0-48.0 [facility] Comment on above: Performed By: #### DANILO WAYNE, ERUR #### [facility] [address] [place] [address] Dr. Alexis Petersen Hemoglobin (Bld) [Mass/Vol] 14.1 g/dL Normal 12.0-16.0 [facility] Comment on above: Performed By: #### P DANILO TOMLIN, ERUR #### [facility] [address] [place] [address] Dr. Alexis Petersen IG # 0.05 10e3/ul Critically high 0.00-0.03 [facility] Comment on above: Performed By: #### P DANILO TOMLIN, ERUR #### [facility] [address] [place] [address] Dr. Alexis Petersen IG % 0.5 % Normal 0.0-0.5 [facility] Comment on above: Performed By: #### P DANILO TOMLIN, ERUR #### [facility] [address] [place] [address] Dr. Alexis Petersen LYMPH # 2.6 103/ul Normal 1.2-3.8 [facility] Comment on above: Performed By: #### P DANILO TOMLIN, ERUR #### [facility] [address] [address] [address] Alexis Petersen Lymphocytes/100 WBC (Bld) 25.4 % Normal 20.5-60.0 [facility] Comment on above: Performed By: #### P DANILO TOMLIN, ERUR #### [facility] [address] [place] [address] Dr. Alexis Petersen MANUAL DIFF REQ NO Normal [facility] Comment on above: Performed By: #### P DANILO TOMLIN, ERUR #### [facility] [address] [place] [address] Dr. Alexis Petersen MCH (RBC) [Entitic mass] 28.3 pg Normal 26.7-34.0 [facility] Comment on above: Performed By: #### DANILO WAYNE, ERUR #### [facility] [address] [place] [address] Dr. Alexis Petersen MCHC (RBC) [Mass/Vol] 33.1 g/dL Normal 29.9-35.2 [facility] Comment on above: Performed By: #### DANILO WAYNE, ERUR #### [facility] [address] [place] [address] Dr. Alexis Petersen MCV (RBC) [Entitic vol] 85.5 fL Normal 81.0-99.0 [facility] Comment on above: Performed By: #### P DANILO TOMLIN, ERUR #### [facility] [address] [place] [address] Dr. Alexis Petersen MONO # 0.6 103/ul Normal 0.3-0.8 [facility] Comment on above: Performed By: #### P DANILO TOMLIN, ERUR #### [facility] [address] [place] [address] Dr. Alexis Petersen Monocytes/100 WBC (Bld) 6.2 % Normal 1.7-12.0 [facility] Comment on above: Performed By: #### DANILO WAYNE, ERUR #### [facility] [address] [address] [address] Alexis Petersen NEUT # 6.6 103/ul Critically high 1.4-6.5 [facility] Comment on above: Performed By: #### DANILO WAYNE, ERUR #### [facility] [address] [address] [address] Alexis Petersen Neutrophils/100 WBC (Bld) 64.8 % Normal 43.0-75.0 [facility] Comment on above: Performed By: #### DANILO WAYNE ERUR #### [facility] [address] [address] [address] Alexis Petersen Platelet mean volume (Bld) [Entitic vol] 9.7 fL Normal 9.5-13.5 [facility] Comment on above: Performed By: #### DANILO WAYNE, ERUR #### [facility] [address] [address] [address] Alexis Petersen PLT 298 103/ul Normal 150-450 [facility] Comment on above: Performed By: #### DANILO WAYNE, ERUR #### [facility] [address] [place] [address] Dr. Alexis Petersen RBC 4.98 106/ul Normal 4.20-5.40 [facility] Comment on above: Performed By: #### DANILO WAYNE ERUR #### [facility] [address] [place] [address] Dr. Alexis Petersen WBC 10.1 103/ul Normal 4.0-11.0 [facility] Comment on above: Performed By: #### DANILO WAYNE, ERUR #### [facility] [address] [place] [address] Dr. Alexis Petersen OCC BLD IMMUNO SCREENon 11-0 OCCULT BLOOD Negative Normal NEGATIVE [facility] Comment on above: Performed By: #### O BSCRN #### [facility] [address] [place] [address] Dr. Alexis Petersen PROF 14(COMP METB)on 022 Albumin [Mass/Vol] 3.7 g/dL Normal 3.4-5.0 [facility] Comment on above: Performed By: #### C MP #### [facility] [address] [place] [address] Dr. Alexis Petersen Albumin/Globulin [Mass ratio] 1.1 {ratio} Normal [facility] Comment on above: Performed By: #### C MP #### [facility] [address] [place] [address] Dr. Alexis Petersen ALP [Catalytic activity/Vol] 78 U/L Normal 46-116 [facility] Comment on above: Performed By: #### C MP #### [facility] [address] [place] [address] Dr. Alexis Petersen ALT [Catalytic activity/Vol] 22 U/L Normal 14-59 [facility] Comment on above: Performed By: #### C MP #### [facility] [address] [place] [address] Dr. Alexis Petersen Anion gap [Moles/Vol] 9.6 mmol/L Normal [facility] Comment on above: Performed By: #### C MP #### [facility] [address] [place] [address] Dr. Alexis Petersen AST [Catalytic activity/Vol] 11 U/L Critically low 15-37 [facility] Comment on above: Performed By: #### C MP #### [facility] [address] [place] [address] Dr. Alexis Petersen Bilirubin [Mass/Vol] 0.2 mg/dL Normal 0.2-1.0 [facility] Comment on above: Performed By: #### C MP #### [facility] [address] [place] [address] Dr. Alexis Petersen Calcium [Mass/Vol] 9.2 mg/dL Normal 8.5-10.1 [facility] Comment on above: Performed By: #### C MP #### [facility] [address] [address] [address] Alexis Petersen Chloride [Moles/Vol] 105 mmol/L Normal 98-107 [facility] Comment on above: Performed By: #### C MP #### [facility] [address] [place] [address] Dr. Alexis Petersen CO2 [Moles/Vol] 27.1 mmol/L Normal 21.0-32.0 The [facility] Comment on above: Performed By: #### C MP #### [facility] [address] [place] [address] Dr. Alexis Petersen Creatinine [Mass/Vol] 0.79 mg/dL Normal 0.55-1.02 [facility] Comment on above: Performed By: #### C MP #### [facility] [address] [place] [address] Dr. Alexis Petersen EGFR-AF MALTESE >60 Normal >=60 The [facility] Comment on above: Performed By: #### C MP #### [facility] [address] [address] [address] Alexis Petersen EGFR-NON AF MALTESE >60 Normal >=60 [facility] Comment on above: Performed By: #### C MP #### [facility] [address] [address] [address] Alexis Petersen Globulin (S) [Mass/Vol] 3.4 g/dL Normal [facility] Comment on above: Performed By: #### C MP #### [facility] [address] [address] [address] Alexis Petersen Glucose [Mass/Vol] 118 mg/dL Critically high 74-106 [facility] Comment on above: Performed By: #### C MP #### [facility] [address] [address] [address] Alexis Petersen Potassium [Moles/Vol] 3.7 mmol/L Normal 3.5-5.1 [facility] Comment on above: Performed By: #### C MP #### [facility] [address] [address] [address] Alexis Petersen Protein [Mass/Vol] 7.1 g/dL Normal 6.4-8.2 [facility] Comment on above: Performed By: #### C MP #### [facility] [address] [place] [address] Dr. Alexis Petersen Sodium [Moles/Vol] 138 mmol/L Normal 136-145 [facility] Comment on above: Performed By: #### C MP #### [facility] [address] [place] [address] Dr. Alexis Petersen Urea nitrogen [Mass/Vol] 12.0 mg/dL Normal 7.0-18.0 [facility] Comment on above: Performed By: #### C MP #### [facility] [address] [place] [address] Dr. Alexis Petersen Urea nitrogen/Creatinine [Mass ratio] 15.2 mg/mg Normal [facility] Comment on above: Performed By: #### C MP #### [facility] [address] [place] [address] Dr. Alexis Petersen PROTIMEon 09-05-2022 INR Coag (PPP) [Relative time] 0.97 {INR} Normal [facility] Comment on above: Performed By: #### DANILO WAYNE ERUR #### [facility] [address] [place] [address] Dr. Alexis Petersen INR GUIDELINES SEE BELOW Normal [facility] Comment on above: Result Comment: RAISA RED INR: 2.0 - 3.0 CONDITIONS NOT LISTED BELOW 2.5 - 3.5 FOR PROSTHETIC HEART VALVE REPLACEMENT 2.5 - 3.5 RECURRENT THROMBOSIS Performed By: #### DANILO WAYNE ERUR #### [facility] [address] [place] [address] Dr. Alexis Petersen PT Coag (PPP) [Time] 10.5 s Normal 9.0-11.6 [facility] Comment on above: Performed By: #### P DANILO TOMLIN ERUR #### [facility] [address] [place] [address] Dr. Alexis Petersen PTTon 09-05-2022 aPTT Coag (Bld) [Time] 28.8 s Normal 22.3-36.2 [facility] Comment on above: Performed By: #### P DANILO TOMLIN, ERUR #### [facility] [address] [place] [address] Dr. Alexis Petersen GENITAL CULTUREon 03-19-2022 Genital Culture, Routine Final report Normal [facility] Comment on above: Performed By: #### DANILO WAYNE, ERUR #### [facility] [address] [address] [address] Alexis Petersen Result 1 Comment Normal [facility] Comment on above: Result Comment: Rout ine genital jaime. Performed By: #### DANILO WAYNE, ERUR #### [facility] [address] [place] [address] Dr. Alexis Petersen CULTURE URINEon 03-15-2022 CULTURE URINE Culture Observations: LEE to follow Isolate 1 Escherichia Coli 50,000 cfu/ml of Normal [facility] Comment on above: Performed By: #### DANILO WAYNE, ERUR #### [facility] [address] [place] [address] Dr. Alexis Petersen ER URINE PROFILEon Bilirubin Ql (U) SMALL Abnormal NEGATIVE The [facility] Comment on above: Performed By: #### DANILO WAYNE, ERUR #### [facility] [address] [place] [address] Dr. Alexis Petersen Clarity (U) CLOUDY Abnormal CLEAR [facility] Comment on above: Performed By: #### DANILO WAYNE, ERUR #### [facility] [address] [place] [address] Dr. Alexis Petersen Color (U) ORANGE Abnormal YELLOW [facility] Comment on above: Performed By: #### DANLIO WAYNE, ERUR #### [facility] [address] [place] [address] Dr. Alexis WESTFALL A micrscopic examination will be performed if indicated. Normal [facility] Comment on above: Performed By: #### DANILO WAYNE, ERUR #### [facility] [address] [address] [address] Alexis Petersen Glucose Ql (U) Negative Normal NEGATIVE [facility] Comment on above: Performed By: #### P DANILO TOMLIN, ERUR #### [facility] [address] [address] [address] Alexis Petersen Hemoglobin Ql (U) LARGE Abnormal NEGATIVE [facility] Comment on above: Performed By: #### P REGDANILO Palacio, ERUR #### [facility] [address] [address] [address] Alexis Petersen Ketones Ql (U) 15 mg/dl Abnormal NEGATIVE [facility] Comment on above: Performed By: #### P DANILO TOMLIN, ERUR #### [facility] [address] [address] [address] Alexis Petersen LEUKOCYTES MODERATE Abnormal NEGATIVE [facility] Comment on above: Performed By: #### P DANILO TOMLIN, ERUR #### [facility] [address] [address] [address] Alexis Petersen Nitrite Ql (U) Positive Abnormal NEGATIVE [facility] Comment on above: Performed By: #### DANILO WAYNE, ERUR #### [facility] [address] [address] [address] Alexis Petersen pH (U) 5.0 [pH] Normal 5-9 [facility] Comment on above: Performed By: #### P DANILO TOMLIN, ERUR #### [facility] [address] [address] [address] Alexis Petersen SPEC GRAVITY >=1.030 Abnormal 1.005-<=1.025 [facility] Comment on above: Performed By: #### P DANILO TOMLIN, ERUR #### [facility] [address] [address] [address] Alexis Petersen UA PROTEIN >300 Abnormal NEGATIVE/ TRACE [facility] Comment on above: Performed By: #### P DANILO TOMLIN, ERUR #### [facility] [address] [address] [address] Alexis Petersen UR MICRO IND INDICATED Normal [facility] Comment on above: Performed By: #### P REGPRESTON PalacioICRO, ERUR #### [facility] [address] [address] [address] Alexis Petersen Urobilinogen Qn (U) 1.0 {Justin'U}/dL Normal 0.2 - 1. 0 [facility] Comment on above: Performed By: #### P REGU UMICRO, ERUR #### [facility] [address] [address] [address] Alexis Petersen URon 03-15-2022 , QUAL Negative Normal NEGATIVE [facility] Comment on above: Performed By: #### P REGHakeem UMICRO, ERUR #### [facility] [address] [place] [address] Dr. Alexis Petersen URINE MICROSCOPIC ONLYon BACTERIA SMALL Abnormal NONE SEEN [facility] Comment on above: Performed By: #### P REGHakeem UMICRO, ERUR #### [facility] [address] [address] [address] Alexis Petersen Bacteria identified Cx Nom (U) INDICATED Normal [facility] Comment on above: Performed By: #### P REGU UMICRO, ERUR #### [facility] [address] [address] [address] Alexis Petersen CAST NONE SEEN Normal NONE SEEN [facility] Comment on above: Performed By: #### P REGU UMICRO, ERUR #### [facility] [address] [address] [address] Alexis Petersen Crystals LM Nom (Urine sed) NONE SEEN Normal NONE SEEN [facility] Comment on above: Performed By: #### P REGU UMICRO, ERUR #### [facility] [address] [address] [address] Alexis Petersen Epithelial cells LM Ql (Urine sed) FEW Abnormal NONE SEEN /RARE [facility] Comment on above: Performed By: #### P REGU, UMICRO, ERUR #### [facility] [address] [address] [address] Alexis Petersen MUCOUS NONE SEEN Normal NONE SEEN [facility] Comment on above: Performed By: #### P DANILO TOMLIN, ERUR #### [facility] [address] [address] [address] Alexis Petersen RBC (U) [#/Vol] /uL Abnormal 0-2 [facility] Comment on above: Performed By: #### P DANILO TOMLIN, ERUR #### [facility] [address] [address] [address] Alexis Petersen WBC 10-20 Abnormal NONE SEEN [facility] Comment on above: Performed By: #### P DANILO TOMLIN, ERUR #### [facility] [address] [place] [address] Dr. Alexis Petersen WET PREPon 03-15-2022 CLUE CELLS SEEN Abnormal NONE SEEN [facility] Comment on above: Performed By: #### W P #### [facility] [address] [address] [address] Alexis Petersen FUNGAL ELEMENTS NONE SEEN Normal NONE SEEN [facility] Comment on above: Performed By: #### W P #### [facility] [address] [place] [address] Dr. Alexis Petersen RBC -WET PREP MANY Abnormal NONE SEEN [facility] Comment on above: Performed By: #### W P #### [facility] [address] [address] [address] Alexis Petersen TRICHOMONAS NONE SEEN Normal NONE SEEN [facility] Comment on above: Performed By: #### W P #### [facility] [address] [address] [address] Alexis Petersen WBC- WET PREP FEW Abnormal NONE SEEN [facility] Comment on above: Performed By: #### W P #### [facility] [address] [place] [address] Dr. Alexis Petersen WET PREP BACTERIA RARE Abnormal NONE SEEN [facility] Comment on above: Performed By: #### W P #### [facility] [address] [place] [address] Dr. Alexis Petersen CULTURE URINEon 03-12-2022 CULTURE URINE Isolate 1 Escherichia coli >100,000 cfu/mL of ORGANISM 1 Escherichia coli ANTIBIOTIC M.I.C RX STATUS Ampicillin <=2 S F Ampicillin/Sulbactam <=2 S F Piperacillin/Tazobac serrano <=4 S F Cefazolin <=4 S F Ceftazidime <=1 S F Ceftriaxone <=1 S F Ertapenem <=0.5 S F Imipenem <=0.25 S F Amikacin <=2 S F Gentamicin <=1 S F Tobramycin <=1 S F Ciprofloxacin <=0.25 S F Levofloxacin <=0.12 S F Nitrofurantoin <=16 S F Trimethoprim/Sulfame thoxazole <=20 S F Normal [facility] Comment on above: Performed By: #### P DANILO TOMLIN ERUR #### [facility] [address] [place] [address] Dr. Alexis Petersen FREE T3on 02-05-2022 FREE T3 2.77 pg/mlL Normal 2.77-5.27 [facility] Comment on above: Performed By: #### T OLIVER, FT3 #### [facility] [address] [place] [address] Dr. Alexis Petersen FREE T4on 02-05-2022 Free T4 [Mass/Vol] 0.83 ng/dL Normal 0.78-2.19 [facility] Comment on above: Performed By: #### P DANILO TOMLIN ERUR #### [facility] [address] [place] [address] Dr. Alexis Petersen TSHon 02-05-2022 TSH 2.508 uIU/mL Normal 0.470-4.680 [facility] Comment on above: Performed By: #### T OLIVER, FT3 #### [facility] [address] [place] [address] Dr. Alexis Petersen TSH RANGE SEE BELOW Normal [facility] Comment on above: Result Comment: <0.3 4 UIU/ml HYPERTHYROID 0.34-5.60 UIU/ml EUTHYROID >5.60 UIU/ml HYPOTHYROID Performed By: #### T SH, FT3 #### [facility] [address] [address] [address] Alexis Petersen US THYROIDon 02-05-2022 US THYROID EXAMINATION: US THYROID HISTORY: Simple goiter COMPARISON: Ultrasound thyroid 08/12/2021 FINDINGS: RIGHT LOBE: Contains a 2 mm TR 4 nodule. Homogeneous echotexture. Lobe size: 5.8 x 1.6 x 1.3 cm LEFT LOBE: Contains 2 small colloid cysts and a 6 mm TR 1 nodule. Lobe size: 4.8 x 1.3 x 1.4 cm ISTHMUS: Normal size and echotexture. Thickness: 3 mm IMPRESSION: 1. No suspicious thyroid nodules. 2. Consider follow-up imaging in one year if clinically indicated. TR 4: The [employer] TI-RADS committee's white paper recommendations for thyroid lesions classified as TR4 (moderately suspicious) are listed below: > 1.0 cm. Follow-up ultrasound in 1, 2, 3, and 5 years. > 1.5 cm. FNA. J. Am Mason Radiol 2017;14:[id number]. Electronically authenticated by: RENETTA ALONZO Date: 2022-02-05 10:50 Normal [facility] CBC AUTO DIFFon 01-18-2022 BASO # 0.1 103/ul Normal 0.0-0.1 [facility] Comment on above: Performed By: #### DANILO WAYNE ERUR #### [facility] [address] [place] [address] Dr. Alexis Petersen Basophils/100 WBC (Bld) 0.8 % Normal 0.2-2.0 [facility] Comment on above: Performed By: #### DANILO WAYNE ERUR #### [facility] [address] [address] [address] Alexis Petersen EO # 0.3 103/ul Normal 0.0-0.7 [facility] Comment on above: Performed By: #### DANILO WAYNE ERUR #### [facility] [address] [place] [address] Dr. Alexis Petersen Eosinophils/100 WBC (Bld) 3.3 % Normal 0.9-7.0 [facility] Comment on above: Performed By: #### DANILO WAYNE ERUR #### [facility] [address] [place] [address] Dr. Alxeis Petersen Erythrocyte distribution width (RBC) [Ratio] 15.6 % Critically high 11.0-15.0 [facility] Comment on above: Performed By: #### DANILO WAYNE, ERUR #### [facility] [address] [place] [address] Dr. Alexis Petersen Hematocrit (Bld) [Volume fraction] 40.0 % Normal 36.0-48.0 [facility] Comment on above: Performed By: #### DANILO WAYNE, ERUR #### [facility] [address] [place] [address] Dr. Alexis Petersen Hemoglobin (Bld) [Mass/Vol] 13.3 g/dL Normal 12.0-16.0 [facility] Comment on above: Performed By: #### DANILO WAYNE, ERUR #### [facility] [address] [place] [address] Dr. Alexis Petersen IG # 0.06 10e3/ul Critically high 0.00-0.03 [facility] Comment on above: Performed By: #### DANILO WAYNE, ERUR #### [facility] [address] [place] [address] Dr. Alexis Petersen IG % 0.7 % Critically high 0.0-0.5 [facility] Comment on above: Performed By: #### DANILO WAYNE, ERUR #### [facility] [address] [place] [address] Dr. Alexis Petersen LYMPH # 2.8 103/ul Normal 1.2-3.8 [facility] Comment on above: Performed By: #### DANILO WAYNE, ERUR #### [facility] [address] [place] [address] Dr. Alexis Petersen Lymphocytes/100 WBC (Bld) 31.3 % Normal 20.5-60.0 [facility] Comment on above: Performed By: #### P DANILO TOMLIN, ERUR #### [facility] [address] [address] [address] Alexis Petersen MANUAL DIFF REQ NO Normal [facility] Comment on above: Performed By: #### P REGPRESTON PalacioICRO, ERUR #### [facility] [address] [address] [address] Alexis Petersen MCH (RBC) [Entitic mass] 29.3 pg Normal 26.7-34.0 [facility] Comment on above: Performed By: #### P REGPRESTON PalacioICRO, ERUR #### [facility] [address] [place] [address] Dr. Alexis Petersen MCHC (RBC) [Mass/Vol] 33.3 g/dL Normal 29.9-35.2 [facility] Comment on above: Performed By: #### P REGHakeem UMICRO, ERUR #### [facility] [address] [address] [address] Alexis Petersen MCV (RBC) [Entitic vol] 88.1 fL Normal 81.0-99.0 [facility] Comment on above: Performed By: #### P REGPRESTON PalacioICRO, ERUR #### [facility] [address] [place] [address] Dr. Alexis Petersen MONO # 0.7 103/ul Normal 0.3-0.8 [facility] Comment on above: Performed By: #### P REGU UMICRO, ERUR #### [facility] [address] [place] [address] Dr. Alexis Petersen Monocytes/100 WBC (Bld) 7.6 % Normal 1.7-12.0 [facility] Comment on above: Performed By: #### P REGU UMICRO, ERUR #### [facility] [address] [place] [address] Dr. Alexis Petersen NEUT # 5.0 103/ul Normal 1.4-6.5 [facility] Comment on above: Performed By: #### DANILO WAYNE, ERUR #### [facility] [address] [place] [address] Dr. Alexis Petersen Neutrophils/100 WBC (Bld) 56.3 % Normal 43.0-75.0 [facility] Comment on above: Performed By: #### DANILO WAYNE, ERUR #### [facility] [address] [place] [address] Dr. Alexis Petersen Platelet mean volume (Bld) [Entitic vol] 11.1 fL Normal 9.5-13.5 [facility] Comment on above: Performed By: #### DANILO WAYNE, ERUR #### [facility] [address] [place] [address] Dr. Alexis Petersen PLT 270 103/ul Normal 150-450 [facility] Comment on above: Performed By: #### DANILO WAYNE, ERUR #### [facility] [address] [place] [address] Dr. Alexis Petersen RBC 4.54 106/ul Normal 4.20-5.40 [facility] Comment on above: Performed By: #### DANILO WAYNE ERUR #### [facility] [address] [place] [address] Dr. Alexis Petersen WBC 8.8 103/ul Normal 4.0-11.0 [facility] Comment on above: Performed By: #### DANILO WAYNE, ERUR #### [facility] [address] [place] [address] Dr. Alexis Petersen ER URINE PROFILEon 2 Bilirubin Ql (U) Negative Normal NEGATIVE The [facility] Comment on above: Performed By: #### NELLIE WAYNER #### [facility] [address] [place] [address] Dr. Alexis Petersen Clarity (U) CLEAR Normal CLEAR [facility] Comment on above: Performed By: #### Burton TOMLIN, ERUR #### [facility] [address] [place] [address] Dr. Alexis Petersen Color (U) LT. YELLOW Normal YELLOW [facility] Comment on above: Performed By: #### P REGU, ERUR #### [facility] [address] [address] [address] Alexis WESTFALL A micrscopic examination will be performed if indicated. Normal [facility] Comment on above: Performed By: #### P REGU, ERUR #### [facility] [address] [address] [address] Alexis Petersen Glucose Ql (U) Negative Normal NEGATIVE [facility] Comment on above: Performed By: #### P REGU, ERUR #### [facility] [address] [address] [address] Alexis Petersen Hemoglobin Ql (U) Negative Normal NEGATIVE [facility] Comment on above: Performed By: #### P REGU, ERUR #### [facility] [address] [address] [address] Alexis Petersen Ketones Ql (U) Negative Normal NEGATIVE [facility] Comment on above: Performed By: #### P REGU, ERUR #### [facility] [address] [address] [address] Alexis Petersen LEUKOCYTES Negative Normal NEGATIVE [facility] Comment on above: Performed By: #### P REGU, ERUR #### [facility] [address] [address] [address] Alexis Petersen Nitrite Ql (U) Negative Normal NEGATIVE [facility] Comment on above: Performed By: #### P REGU, ERUR #### [facility] [address] [address] [address] Alexis Petersen pH (U) 6.0 [pH] Normal 5-9 [facility] Comment on above: Performed By: #### P REGU, ERUR #### [facility] [address] [address] [address] Alexis Petersen SPEC GRAVITY 1.015 Normal 1.005-<=1.025 [facility] Comment on above: Performed By: #### P REGU, ERUR #### [facility] [address] [address] [address] Alexis Petersen UA PROTEIN Negative Normal NEGATIVE/ TRACE [facility] Comment on above: Performed By: #### P REGU, ERUR #### [facility] [address] [address] [address] Alexis Petersen UR MICRO IND NOT INDICATED Normal [facility] Comment on above: Performed By: #### P REGU, ERUR #### [facility] [address] [address] [address] Alexis Petersen Urobilinogen Qn (U) 0.2 {Justin'U}/dL Normal 0.2 - 1. 0 [facility] Comment on above: Performed By: #### P REGU, ERUR #### [facility] [address] [place] [address] Dr. Alexis Petersen URon 01-18-2022 , QUAL Negative Normal NEGATIVE [facility] Comment on above: Performed By: #### P REGU, ERUR #### [facility] [address] [place] [address] Dr. Alexis Petersen PROF CHEM 8 (BAS METB)on Anion gap [Moles/Vol] 13.9 mmol/L Normal [facility] Comment on above: Performed By: #### P REGU, UMICRO, ERUR #### [facility] [address] [address] [address] Alexis Petersen Calcium [Mass/Vol] 9.1 mg/dL Normal 8.5-10.1 [facility] Comment on above: Performed By: #### P REGU, UMICRO, ERUR #### [facility] [address] [address] [address] Alexis Petersen Chloride [Moles/Vol] 102 mmol/L Normal 98-107 [facility] Comment on above: Performed By: #### P REGU, UMICRO, ERUR #### [facility] [address] [address] [address] Alexis Petersen CO2 [Moles/Vol] 26.4 mmol/L Normal 22.0-30.0 [facility] Comment on above: Performed By: #### DANILO WAYNE, ERUR #### [facility] [address] [address] [address] Alexis Petersen Creatinine [Mass/Vol] 0.88 mg/dL Normal 0.52-1.04 [facility] Comment on above: Performed By: #### DANILO WAYNE, ERUR #### [facility] [address] [address] [address] Alexis Petersen EGFR-AF MALTESE >60 Normal >=60 The [facility] Comment on above: Performed By: #### DANILO WAYNE, ERUR #### [facility] [address] [place] [address] Dr. Alexis Petersen EGFR-NON AF MALTESE >60 Normal >=60 [facility] Comment on above: Performed By: #### DANILO WAYNE, ERUR #### [facility] [address] [place] [address] Dr. Alexis Petersen Glucose [Mass/Vol] 91 mg/dL Normal 74-106 [facility] Comment on above: Performed By: #### DANILO WAYNE, ERUR #### [facility] [address] [place] [address] Dr. Alexis Petersen Potassium [Moles/Vol] 4.3 mmol/L Normal 3.4-5.0 [facility] Comment on above: Performed By: #### DANILO WAYNE, ERUR #### [facility] [address] [place] [address] Dr. Alexis Petersen Sodium [Moles/Vol] 138 mmol/L Normal 137-145 [facility] Comment on above: Performed By: #### DANILO WAYNE, ERUR #### [facility] [address] [place] [address] Dr. Alexis Petersen Urea nitrogen [Mass/Vol] 13.0 mg/dL Normal 7.0-18.0 [facility] Comment on above: Performed By: #### P REGUDANILO, ERUR #### [facility] [address] [address] [address] Alexis Petersen Urea nitrogen/Creatinine [Mass ratio] 14.8 mg/mg Normal [facility] Comment on above: Performed By: #### P REGU, PRESTONICRO, ERUR #### [facility] [address] [address] [address] Alexis Petersen Acetaminophenon 06-25-2021 Acetaminophen [Mass/Vol] ug/mL Low 10.0-30.0 [facility] Comment on above: Result Comment: PERF ORMED BY: [place] [phone] PATHOLOGIST LITHODUPLICATOR OPERATOR VIKKI ERICKSON M.D. Performed By: #### S AL, CMP, ETOH, CBC, ACET #### [address] Complete Blood Count Auto Di ffon 06-25-2021 Basophils (Bld) [#/Vol] 0.1 10*3/uL Normal 0.0-0.2 [facility] Comment on above: Result Comment: PERF ORMED BY: [place] [phone] PATHOLOGIST LITHODUPLICATOR OPERATOR VIKKI ERICKSON M.D. Performed By: #### S AL, CMP, ETOH, CBC, ACET #### [facility] [address] [place] [address] [place] Basophils/100 WBC (Bld) 0.7 % Normal . [facility] Comment on above: Performed By: #### S AL, CMP, ETOH, CBC, ACET #### [facility] [address] [place] [address] [place] Eosinophils (Bld) [#/Vol] 0.2 10*3/uL Normal 0.0-0.45 [facility] Comment on above: Performed By: #### S AL, CMP, ETOH, CBC, ACET #### [facility] [address] [place] [address] [place] Eosinophils/100 WBC (Bld) 2.3 % Normal . [facility] Comment on above: Performed By: #### S AL, CMP, ETOH, CBC, ACET #### [address] Erythrocyte distribution width (RBC) [Ratio] 13.8 % Normal 11.9-15.3 [facility] Comment on above: Performed By: #### S AL, CMP, ETOH, CBC, ACET #### [address] Hematocrit (Bld) [Volume fraction] 45.5 % Normal 34.0-46.4 [facility] Comment on above: Performed By: #### S AL, CMP, ETOH, CBC, ACET #### [address] Hemoglobin (Bld) [Mass/Vol] 15.7 g/dL High 11.8-15.4 [facility] Comment on above: Performed By: #### S AL, CMP, ETOH, CBC, ACET #### [address] Lymphocytes (Bld) [#/Vol] 1.6 10*3/uL Normal 1.00-4.8 [facility] Comment on above: Performed By: #### S AL, CMP, ETOH, CBC, ACET #### [address] Lymphocytes/100 WBC (Bld) 15.2 % Normal . [facility] Comment on above: Performed By: #### S AL, CMP, ETOH, CBC, ACET #### [address] MCH (RBC) [Entitic mass] 32.0 pg Normal 24.7-34.3 [facility] Comment on above: Performed By: #### S AL, CMP, ETOH, CBC, ACET #### [address] MCV (RBC) [Entitic vol] 92.7 fL Normal 80-100 [facility] Comment on above: Performed By: #### S AL, CMP, ETOH, CBC, ACET #### [address] Mean Corpuscular HGB Conc 34.5 g/dL Normal 32.0-35.0 [facility] Comment on above: Performed By: #### S AL, CMP, ETOH, CBC, ACET #### [address] Monocytes (Bld) [#/Vol] 0.4 10*3/uL Normal 0.0-0.8 [facility] Comment on above: Performed By: #### S AL, CMP, ETOH, CBC, ACET #### [place] [address] [place] Monocytes/100 WBC (Bld) 4.2 % Normal . [facility] Comment on above: Performed By: #### S AL, CMP, ETOH, CBC, ACET #### [address] Neutrophils (Bld) [#/Vol] 7.9 10*3/uL High 1.8-7.7 [facility] Comment on above: Performed By: #### S AL, CMP, ETOH, CBC, ACET #### [address] Neutrophils/100 WBC (Bld) 77.6 % Normal . [facility] Comment on above: Performed By: #### S AL, CMP, ETOH, CBC, ACET #### [place] [address] [place] Nucleated RBC/100 WBC (Bld) [Ratio] 0.0 % Normal 0-0.5 [facility] Comment on above: Performed By: #### S AL, CMP, ETOH, CBC, ACET #### [place] [address] [place] Platelet mean volume (Bld) [Entitic vol] 7.8 fL Normal 6.3-10.7 [facility] Comment on above: Performed By: #### S AL, CMP, ETOH, CBC, ACET #### [place] [address] [place] Platelets (Bld) [#/Vol] 253 10*3/uL Normal 150-450 [facility] Comment on above: Performed By: #### S AL, CMP, ETOH, CBC, ACET #### [address] RBC (Bld) [#/Vol] 4.91 10*6/uL Normal 3.60-5.00 [facility] Comment on above: Performed By: #### S AL, CMP, ETOH, CBC, ACET #### [address] WBC (Bld) [#/Vol] 10.2 10*3/uL Normal 4.5-11.0 [facility] Comment on above: Performed By: #### S AL, CMP, ETOH, CBC, ACET #### [address] Comprehensive Metabolic Pane tony 06-25-2021 Albumin [Mass/Vol] 4.2 g/dL Normal 3.2-5.5 [facility] Comment on above: Performed By: #### S AL, CMP, ETOH, CBC, ACET #### [address] Albumin/Globulin [Mass ratio] 1.5 {ratio} Normal [facility] Comment on above: Performed By: #### S AL, CMP, ETOH, CBC, ACET #### [address] ALP [Catalytic activity/Vol] 50 U/L Normal 32-92 [facility] Comment on above: Performed By: #### S AL, CMP, ETOH, CBC, ACET #### [address] ALT [Catalytic activity/Vol] 31 U/L Normal 10-60 [facility] Comment on above: Performed By: #### S AL, CMP, ETOH, CBC, ACET #### [address] AST [Catalytic activity/Vol] 25 U/L Normal 10-42 [facility] Comment on above: Performed By: #### S AL, CMP, ETOH, CBC, ACET #### [facility] [address] Bilirubin [Mass/Vol] 0.5 mg/dL Normal 0.3-1.2 [facility] Comment on above: Performed By: #### S AL, CMP, ETOH, CBC, ACET #### [facility] [address] Calcium [Mass/Vol] 9.2 mg/dL Normal 8.2-10.2 [facility] Comment on above: Performed By: #### S AL, CMP, ETOH, CBC, ACET #### [facility] [address] Chloride [Moles/Vol] 105 mmol/L Normal 95-114 [facility] Comment on above: Performed By: #### S AL, CMP, ETOH, CBC, ACET #### [facility] [address] CO2 [Moles/Vol] 24.4 mmol/L Normal 22.0-30.0 [facility] Comment on above: Performed By: #### S AL, CMP, ETOH, CBC, ACET #### [address] Creatinine [Mass/Vol] 0.94 mg/dL Normal 0.44-1.03 [facility] Comment on above: Performed By: #### S AL, CMP, ETOH, CBC, ACET #### [place] [address] [place] Creatinine Clr Calc Pharmacy 97.12 [facility] Comment on above: Result Comment: PERF ORMED BY: [place] [address] PATHOLOGIST LITHODUPLICATOR OPERATOR VIKKI ERICKSON M.D. Performed By: #### S AL, CMP, ETOH, CBC, ACET #### [address] Estimated GFR ( Celia > 60 [facility] Comment on above: Result Comment: GFR estimated reference range: According to KDOQI guidelines, <60 ml/min/1.73m2 is sufficient to diagnose a patient with chronic kidney disease. Performed By: #### S AL, CMP, ETOH, CBC, ACET #### [address] Estimated GFR (Non- Am > 60 Normal [facility] Comment on above: Performed By: #### S AL, CMP, ETOH, CBC, ACET #### [address] Globulin (S) [Mass/Vol] 2.8 g/dL Normal [facility] Comment on above: Performed By: #### S AL, CMP, ETOH, CBC, ACET #### [address] Glucose [Mass/Vol] 112 mg/dL High 70-100 [facility] Comment on above: Result Comment: [facility] Glucose Reference Range is dependent on time and content of last meal. Glucose of more than 200 mg/dL in a nonstressed, ambulatory subject supports the diagnosis of Diabetes Mellitus. ADA recommended reference range Performed By: #### S AL, CMP, ETOH, CBC, ACET #### [address] Potassium [Moles/Vol] 3.7 mmol/L Normal 3.5-5.1 [facility] Comment on above: Performed By: #### S AL, CMP, ETOH, CBC, ACET #### [address] Protein [Mass/Vol] 7.0 g/dL Normal 6.1-7.9 [facility] Comment on above: Performed By: #### S AL, CMP, ETOH, CBC, ACET #### [address] Sodium [Moles/Vol] 139 mmol/L Normal 136-146 [facility] Comment on above: Performed By: #### S AL, CMP, ETOH, CBC, ACET #### [address] Urea nitrogen [Mass/Vol] 11 mg/dL Normal 9- [facility] Comment on above: Performed By: #### S AL, CMP, ETOH, CBC, ACET #### [facility] [address] [place] [address] Drug Screen,Urineon 06-25-20 21 Amphetamine Screen,Urine Negative Normal Negative [facility] Comment on above: Performed By: #### U A, URDS #### [facility] [address] [place] [address] Barbiturate Screen,Urine Negative Normal Negative [facility] Comment on above: Performed By: #### U A, URDS #### [address] Benzodiazepines Screen,Urine Negative Normal Negative [facility] Comment on above: Performed By: #### U A, URDS #### [address] Cannabinoid Screen,Urine Negative Normal Negative [facility] Comment on above: Result Comment: Thes e are unconfirmed results and should not be used for legal purposes. Drug Cut-Off Concentration: AMPH 1000 ng/mL PARKER 200 ng/mL JOHN 200 ng/mL COCM 300 ng/mL OP 300 ng/mL PCP 25 ng/mL THC 20 ng/mL PERFORMED BY: [place] [address] PATHOLOGIST LITHODUPLICATOR OPERATOR VIKKI ERICKSON M.D. Performed By: #### U A, URDS #### [facility] [address] [place] [address] [place] Cocaine Screen,Urine Negative Normal Negative [facility] Comment on above: Performed By: #### U A, URDS #### [facility] [address] [place] [address] [place] Opiate Screen,Urine Negative Normal Negative [facility] Comment on above: Performed By: #### U A, URDS #### [address] Phencyclidine Screen,Urine Negative Normal Negative [facility] Comment on above: Performed By: #### U A, URDS #### [facility] [address] [place] [address] [place] ECG 12 lead ECGon 06-25-2021 ECG [address] [facility] [address] [place] [address] [place] [address] Electrocardiograph Report Signed Patient: Roseann Reynolds MR#: [id number] : 1990 Acct:[id number] Age/Sex: 31 / F ADM Date: 06/25/21 Loc: ER Room: Type: [facility] ER Attending Dr: Ordering Provider: Barney Miles DO Date of Service: 06/25/21 ECG/ECG 12 lead ECG: OVERDOSE Copies to: Test Reason : Blood Pressure : 186/122 mmHG Vent. Rate : 103 BPM Atrial Rate : 103 BPM P-R Int : 136 ms QRS Dur : 088 ms QT Int : 366 ms P-R-T Axes : 052 034 048 degrees QTc Int : 479 ms Sinus tachycardia Otherwise normal ECG No previous ECGs available Confirmed by BARNEY MILES DO ([id number]) on 06/25/2021 5:54:51 AM Referred By: Electronically Signed By:BARNEY MILES DO Transcribed By: MUS Dictated By: Barney Miles DO 06/25/21 0200 Signed By: 06/25/21 0554 [facility] Ethyl Alcohol Profileon 06-01 Ethanol [Mass/Vol] mg/dL [facility] Comment on above: Performed By: #### S AL, CMP, ETOH, CBC, ACET #### [facility] [address] [place], [place] [id number] [facility] Percent Ethanol Not performed [facility] Comment on above: Result Comment: PERF ORMED BY: [place] [address] PATHOLOGIST LITHODUPLICATOR OPERATOR VIKKI ERICKSON M.D. Performed By: #### S AL, CMP, ETOH, CBC, ACET #### [facility] [address] [id number] [place] Glucose Poct Glucometerson 0 06-25-2021 Glucose [Mass/Vol] 113 mg/dL [facility] Comment on above: Result Comment: Miladys bautista Glucose Reference Range is dependent on time and content of last meal. Glucose of more than 200 mg/dL in a nonstressed, ambulatory subject supports the diagnosis of Diabetes Mellitus. PERFORMED BY: [place] [address] PATHOLOGIST LITHODUPLICATOR OPERATOR VIKKI ERICKSON M.D. Performed By: #### G LULS #### Point of Care testing , Salicylateon 06-25-2021 Salicylate < 4.0 Low 15.0-30.0 [facility] Comment on above: Result Comment: Drea ents treated with Sulfasalazine may generate a false high result for Salicylate. Patients treated with Sulfapyridine may generate a false low result for Salicylate. Performed By: #### S AL, CMP, ETOH, CBC, ACET #### [facility] [address] [place] [address] [place] Urinalysison 06-25-2021 Appearance (U) Clear Normal Clear [facility] Comment on above: Order Comment: Name Collection Type:: Clean-Voided Midstream Performed By: #### U A, URDS #### [facility] [address] [place] [address] [place] Bilirubin,Urine Negative Normal Negative [facility] Comment on above: Order Comment: Name Collection Type:: Clean-Voided Midstream Performed By: #### U A, URDS #### [facility] [address] [place] [address] [place] Color (U) Yellow Normal Yellow [facility] Comment on above: Order Comment: Name Collection Type:: Clean-Voided Midstream Performed By: #### U A, URDS #### [facility] [address] [place] [address] [place] Glucose Ql (U) Normal Normal Normal [facility] Comment on above: Order Comment: Name Collection Type:: Clean-Voided Midstream Performed By: #### U A, URDS #### [facility] [address] [place] [address] [place] Ketones Ql (U) Negative Normal Negative [facility] Comment on above: Order Comment: Name Collection Type:: Clean-Voided Midstream Performed By: #### U A, URDS #### [facility] [address] Leukocyte esterase Test strip Ql (U) Negative Normal Negative [facility] Comment on above: Order Comment: Name Collection Type:: Clean-Voided Midstream Performed By: #### U A, URDS #### [facility] [address] [place] [address] [place] Nitrite,Urine Negative Normal Negative [facility] Comment on above: Order Comment: Name Collection Type:: Clean-Voided Midstream Performed By: #### U A, URDS #### [facility] [address] [place] [address] [place] Occult Blood,Urine Negative Normal Negative [facility] Comment on above: Order Comment: Name Collection Type:: Clean-Voided Midstream Result Comment: PERF ORMED BY: [place] [address] PATHOLOGIST LITHODUPLICATOR OPERATOR VIKKI ERICKSON M.D. Performed By: #### U A, URDS #### [facility] [address] [place] [address] [place] pH (U) 8.0 [pH] Normal 5.0-9.0 [facility] Comment on above: Order Comment: Name Collection Type:: Clean-Voided Midstream Performed By: #### U A, URDS #### [facility] [address] [place] [address] [place] Protein,Urine Negative Normal Negative [facility] Comment on above: Order Comment: Name Collection Type:: Clean-Voided Midstream Performed By: #### U A, URDS #### [facility] [address] [place] [address] [place] Specificy [place],Urine 1.011 Normal 1.001-1.030 [facility] Comment on above: Order Comment: Name Collection Type:: Clean-Voided Midstream Performed By: #### U A, URDS #### [facility] [address] [place] [address] [place] Urobilinogen,Urine Normal Normal Normal [facility] Comment on above: Order Comment: Name Collection Type:: Clean-Voided Midstream Performed By: #### U A, URDS #### [facility] [address] [place] [id number] [facility] Encounters Encounter Date Encounter Type Care Provider Facility Start: 09-04-2022 End: 09-05-[address] PRICILA PANG Facility:[facility] Start: 03-14-2022 End: 03-15-[address] PRICILA PANG Facility:[facility] Start: 03-09-2022 End: 03-09-[address] PRICILA PANG Facility:[facility] Start: 02-05-2022 End: 02-06-[address] PRICILA PANG Facility:[facility] Start: 01-18-2022 End: 01-18-[address] PRICILA PANG Facility:[facility] Payers Date Payer Category Payer Unknown [id number] 2.16.84 [id number] 1991 Unknown [id number] 2.16.84 [id number] 1991 Unknown [id number] 2.16.84 [id number] 1991 Unknown [id number] 2.16.84 [id number] 1991 Unknown [id number] 2.16.84 [id number] 1959 Unknown [id number] 1959 Unknown [id number] Clinical Note 02-05-2022 Note Date & Type Note Facility 02-05-2022 Note PROCEDURE: XR GI UPP ER AIR KUB DUAL CONTRAST, XR CINERADIOGRAPHY COMPARISON: None. HISTORY: Dysphagia TECHNIQUE: An air contrast upper gastrointestinal series was performed in the usual manner. Standard level fluoroscopic mode of operation utilized. FINDINGS: ESOPHAGUS:Multiple episodes of mild gastroesophageal reflux. No obstruction, stricture, or abnormal dilation. STOMACH: Large hiatal hernia. No obstruction, mass, or ulceration. Normal motility. DUODENUM:No ulceration or diverticulum. OTHER: Negative. IMPRESSION: 1. Large hiatal hernia likely contributing to patient's gastroesophageal reflux. Electronically authenticated by: RENETTA ALONZO Date: 2022-02-05 09:52 [facility] Clinical Note 02-05-2022 Note Date & Type Note Facility 02-05-2022 Note PROCEDURE: XR GI UPP ER AIR KUB DUAL CONTRAST, XR CINERADIOGRAPHY COMPARISON: None. HISTORY: Dysphagia TECHNIQUE: An air contrast upper gastrointestinal series was performed in the usual manner. Standard level fluoroscopic mode of operation utilized. FINDINGS: ESOPHAGUS:Multiple episodes of mild gastroesophageal reflux. No obstruction, stricture, or abnormal dilation. STOMACH: Large hiatal hernia. No obstruction, mass, or ulceration. Normal motility. DUODENUM:No ulceration or diverticulum. OTHER: Negative. IMPRESSION: 1. Large hiatal hernia likely contributing to patient's gastroesophageal reflux. Electronically authenticated by: RENETTA ALONZO Date: 2022-02-05 09:52 [facility] Summary Purpose Family History No Family History Records FoundNo Family History Records Found Advance Directives No Advanced Directives Records FoundNo Advanced Directives Records Found Additional Source Comments INFORMATION SOURCE (unrecogn ized section and content) DATE CREATED AUTHOR 08/07/2021 [facility] DATE CREATED AUTHOR AUTHOR'S ORGANIZ ATION 09/07/2022 [facility] FOR RECORDS PERTAINING TO PATIENTS WHO ARE OR HAVE BEEN ENROLLED IN A CHEMICAL DEPENDENCY/SUBSTANCEABUSE PROGRAM, SOME INFORMATION MAY BE OMITTED. This clinical summary was aggregated from multiple sources. Caution should be exercised in using it in the provision of clinical care. This summary normalizes information from multiple sources, and as a consequence, information in this document may materially change the coding, format and clinical context of patient data. In addition, data may be omitted in some cases. CLINICAL DECISIONS SHOULD BE BASED ON THE PRIMARY CLINICAL RECORDS. [employer] [facility]. provides no warranty or guarantee of the accuracy or completeness of information in this document.
[2023-11-04 15:20] LABS: Basophils Absolute Auto 0.1 10^3/uL (0.0-0.1); Basophils Percent Auto 0.8 % (0.2-2.0); Eosinophils Absolute Auto 0.2 10^3/uL (0.0-0.7); Eosinophils Percent Auto 2.9 % (0.9-7.0); Hematocrit 45.8 % (36.0-48.0); Hemoglobin 15.2 g/dL (12.0-16.0); Immature Granulocytes Abs Auto 0.02 10^3/uL (0.00-0.03); Immature Granulocytes Pct Auto 0.3 % (0.0-0.5); Lymphocytes Absolute Auto 2.6 10^3/uL (1.2-3.8); Lymphocytes Percent Auto 35.7 % (20.5-60.0); Mean Corpuscular HGB Conc 33.2 g/dL (29.9-35.2); Mean Corpuscular Hemoglobin 30.2 pg (26.7-34.0); Mean Corpuscular Volume 91.1 fL (81.0-99.0); Mean Platelet Volume 10.3 fL (9.5-13.5); Monocytes Absolute Auto 0.5 10^3/uL (0.3-0.8); Monocytes Percent Auto 7.6 % (1.7-12.0); Neutrophils Absolute Auto 3.8 10^3/uL (1.4-6.5); Neutrophils Percent Auto 52.7 % (43.0-75.0); Platelet Count 242 10^3/uL (150-450); Red Blood Count 5.03 10^6/uL (4.20-5.40); Red Cell Distribution Width 13.5 % (11.0-15.0); White Blood Count 7.2 10^3/uL (4.0-11.0)
[2023-11-04 15:41] LABS: Estimated Average Glucose 105 mg/dL; Glycohemoglobin A1C 5.3 % (4.5-6.2)
[2023-11-04 15:51] LABS: Alanine Aminotransferase 20 U/L (14-59); Albumin Globulin Ratio 1.1; Albumin Level 3.4 g/dL (3.4-5.0); Alkaline Phosphatase 56 U/L (46-116); Anion Gap 9.1; Aspartate Amino Transferase 13 U/L (15-37); BUN Creatinine Ratio 14.1; Bilirubin Direct 0.1 mg/dL (0.0-0.2); Bilirubin Total 0.5 mg/dL (0.2-1.0); Calcium 9.3 mg/dL (8.5-10.1); Carbon Dioxide 26.7 mmol/L (21.0-32.0); Chloride 104 mmol/L (98-107); Chol HDL Ratio 4.4; Cholesterol 191 mg/dL (<=200); Estimated GFR (African America >60 (>=60); Estimated GFR (Non-African Ame >60 (>=60); Globulin 3.2 g/dL; Glucose 90 mg/dL (74-106); HDL Cholesterol 43 mg/dL (40-60); LDL Cholesterol Calculated 129.6 mg/dL; Potassium 3.8 mmol/L (3.5-5.1); Sodium 136 mmol/L (136-145); Thyroid Stimulating Hormone 1.639 uIU/mL (0.358-3.740); Total Protein 6.6 g/dL (6.4-8.2); Triglycerides 92 mg/dL (<=150); VLDL CHOLESTEROL 18.4 mg/dL
== END 2023-11-04 15:05 | disposition home or self-care (01) ==
LOC: LAB 15:04
PROVIDERS: PCP Family Medicine; Visit Provider Family Medicine
DX: Z00.00 Encounter for general adult medical examination without abnormal findings (principal)
CPT/HCPCS: 36415; 80048; 80061; 80076; 83036; 84443; 85025

== ENCOUNTER 2025-09-20 11:17 | Outpatient (OUT) | payer BC, SELFPAY ==
--- OUTSIDE RECORDS SUMMARY | 2012-05-08 02:59 | XMS_ITS | Continuity of Care Document ---
Demographics Address Needs New Address [address] [place] [address] Home Phone Email Address none Preferred Language en Marital Status Never Scientologist Affiliation Unknown Race Unknown Additional Race(s) Other Race Ethnic Group Unknown Author Organization [facility] Address [address] [place] [address] Phone Care Team Providers Care Moss Picker Name Role Phone Ari Fitzgerald Unavailable Unavailable Procedures Procedure Date TB INTRADERMAL TEST TB INTRADERMAL TEST TB INTRADERMAL TEST TB INTRADERMAL TEST REMOVE INTRAUTERINE DEVICE [facility] FP MEDICAID SPECIMEN HANDLING OFFICE/OUTPATIENT VISIT, EST SPECIMEN HANDLING OFFICE/OUTPATIENT VISIT, EST [facility] ZITHROMAX SPECIMEN HANDLING ROUTINE VENIPUNCTURE HIV-1 OFFICE/OUTPATIENT VISIT, EST URINE TEST FLU VACCINE, 3 YRS & >, IM H1N1 TB INTRADERMAL TEST TB INTRADERMAL TEST OFFICE/OUTPATIENT VISIT, EST INSERT INTRAUTERINE DEVICE Levonorgestrel iu contracept URINE TEST NEW FP MEDICAID URINE TEST SPECIMEN HANDLING URINALYSIS, NONAUTO W/SCOPE Advance Directives Directive Yes / No Effective Date File Name Resuscitation Not Answered N/A N/A Life Support Not Answered N/A N/A Intubation Not Answered N/A N/A Antibiotics Not Answered N/A N/A IV Fluid Support Not Answered N/A N/A Tube Feed Not Answered N/A N/A Other Directive N/A N/A WARNING:The information contained in this section is historical and is provided for information only and does not constitute a legal document or any assurance that the information is still accurate. Please verify the information with the bill of the legal document before using it for clinical purposes. Encounters Encounter Description Practice Location Reason(s) For Visit Diagnoses Date Provider Providers Copied on Encounter [facility], [address] [place], [place], [id number], [place] tel:[phone] [facility] No Information 9 2 Visci DO Ari. [address], [place], [id number], [place]. tel:[phone] [facility], [address], [place], [id number], [place] tel:[phone] [facility] No Information 2 Visci DO Chapman. [address], [place], [id number], [place]. tel:[phone] [facility], [address], [place], [id number], [place] tel:[phone] [facility] Screening examination for pulmonary tuberculosis 2 Camilla Ochoa. [address], [place], [id number], [place]. tel:[phone] [facility], [address], [place], [id number], [place] tel:[phone] [facility] No Information 2 Lamp Dayanna. [address], [place], [id number], [place]. tel:[phone] [facility], [address], [place], [id number], [place] tel:[phone] [facility] No Information 3-201 1 Lamp Dayanna. [address], [place], [id number], [place]. tel:[phone] OFFICE/OUTPAT IENT VISIT, EST [facility], [address], [place], [id number], [place] tel:[phone] [facility] No Information 8 1 Blank Denver. [address], [place], [id number], [place]. tel:[phone] OFFICE/OUTPAT IENT VISIT, [facility], [address], [place], [id number], [place] tel:[phone] [facility] No Information 201 0 Blank [place]. [address], [place], [id number], [place]. tel:[phone] OFFICE/OUTPAT IENT VISIT, [facility], [address], [place], [id number], [place] tel:[phone] [facility] No Information 0 2-200 9 Armand Price. [address], [place], [id number]. tel:[phone] [facility], [address], [place], [id number], [place] tel:[phone] [facility] No Information 0 2-200 9 Visci DO Ari. [address], [place], [id number], [place]. tel:[phone] [facility], [address], [place], [id number], [place] tel:[phone] [facility] No Information 2 4-200 9 Visci DO Ari. [address], [place], [id number], [place]. tel:[phone] [facility], [address], [place], [id number], [place] tel:[phone] [facility] No Information 7-200 9 Visci DO Ari. [address], [place], [id number], [place]. tel:[phone] OFFICE/OUTPAT IENT VISIT, [facility], [address], [place], [id number], [place] tel:[phone] [facility] No Information 0-200 9 Armand Price. [address], [place], [id number]. tel:[phone] [facility], [address], [place], [id number], [place] tel:[phone] [facility] No Information 9-200 9 Armand Price. [address], [place], [id number]. tel:[phone] [facility], [address] [place] [address], [id number], [place] tel:[phone] [facility] No Information 3-200 9 No Information Family History Family Member Type Diagnosis Age At Onset No Information Payers Payer name Insurance type Covered democrat ID Authorraheela timaida(s) No Information Social History Type Description Quantity Date Captured Comments Alcohol Use Details Unknown Caffeine Use Details Unknown Tobacco Use Status No Information Smoking Status No Information Sex Female Chief Complaint And Reason For Visit No Information Reason For Referral Reason For Referral No Information History Of Present Illness Encounter Date Complaint History Of Prese nt Illness No Information Functional Status Date Functional Assessmen t No Information Instructions Date Instruction Additional Infor mation No Information Assessments Type Assessment Date No Information Patient Care Teams Name Effective Dates (start - stop) Status Members No Information
--- OUTSIDE RECORDS SUMMARY | 2025-09-20 11:25 | XMS_ITS | Patient Health Record ---
Author Organization [facility] Serv[facility] Address [address] [place] [address] Care Team Providers Care Senior Center Director Name Role Phone Mirna Smita Primary Care Provider Allergies No Known Allergies Reason For Referral No Information Medications Medication SIG (Take, Route, Frequency, Duration) Notes Start Date End Date Status Pantoprazole Sodium ActiveOLANZapine 2.5 MG TabletTake 1 tablet by mouth once daily; Duration: 30 ActiveCarvedilol 6.25 MG Tablet1 tablet Orally Twice a dayActive Social History Tobacco Use: Social History Observation Description Date Details (start date - stop date) Current Smoker NA - NA Social History GeneralSocial InfoQuestionAnswerNotesDepression Screening (PHQ-9):Little interest or pleasure in doing thingsMore than half the daysFeeling down, depressed, or hopelessSeveral daysTrouble falling or staying asleep, or sleeping too muchNearly every dayFeeling tired or having little energyNearly every day Poor appetite or overeatingMore than half the daysFeeling bad about yourself-or that you are a failure or have let yourself or your family downNot at allTrouble concentrating on things, such as reading the newspaper or watching televisionNot at allMoving or speaking so slowly that other people could have noticed. Or the opposite being so fidgetyor restless that you have been moving around a lot more than usualNot at allThoughts that you would be better off , or of hurting yourself in some wayNot at allTotal Hlaok99OntcrhbpyuaalIpitgulw Depression Tobacco Screen:Are you a:current smoker? How many cigarettes a day do you smoke? 11-20? How soon after you wake up do you smoke your first cigarette?within 5 min ? Are you interested in quitting?Thinking about quittingAlcohol Screening:Did you have a drink containing alcohol in the past year?Yes? How often did you have a drink containing alcohol in the past year?Two to three times per week (3 points)? How many drinks did you have on a typical day when you were drinking in the past year?5 or 6 (2 points)? How often did you have six or more drinks on one occasion in the past year?Monthly (2 points)Tqymbe6KtzulyucchwysfNfsadflh Problems Problem Type SNOMED Code ICD Code Onset Dates Problem Status W/U Status Risk Notes Problem Mixed bipolar affect shakira disorder, moderate (215636594) Bipolar mixed affective disorder, moderate (F31.62) Activeconfirmed Plan Of Treatment No Information Insurance Providers Payer Name Payer Address Payer Phone Subscriber Number Group Number Insured Name Patient Relationship to Insured Coverage Start Date [facility]age End Date [facility] [address] [place] [address] [id number] BERRY CASAREZelf - patient is the [id number] MEDICAID CFC after [facility] [address] [place] [id number] CASAREZelf - patient is the [id number] 2021 Medical (General) History Medical History History ICD Code bipolar Surgical History Surgery Date(Month/Year)
--- OUTSIDE RECORDS SUMMARY | 2025-09-20 11:25 | XMS_ITS | Clinical Summary ---
Author Organization [facility] Address [facility] [place] [address] Care Team Providers Care Unified Communications Architect Name Role Phone Yasir Mcmahan MD Primary Care Provider [phone] Allergies No known active allergies Medications MedicationSigDispense QuantityRefillsLast FilledStart DateEnd DateStatus VIT CALC,IRON,FOLIC ( VITAMIN ORAL) Take 1 tablet by mouth daily.Active NIFEdipine CC (ADALAT CC) 30 mg 24 hr tablet Active Active Problems ProblemNoted DateDiagnosed DateHigh-risk in third cicjzjygi76/18/2019 Overview (06/09/2019): Transfer from Dr. Kilpatrick in [facility]: interested in paraguard One hr gct 04/04/19 90 05/22/19 EFW 2553 gms 69% AC > 97% 06/05/19 GBS Negative Smoking (tobacco) complicating , second /25/2019 Resolved Problems ProblemNoted DateDiagnosed DateResolved DateVBAC (vaginal after ) Intrauterine flebgnqrc82Unstable lie of fetus Overview (06/26/2019): 06/12/19 Breech Was Cephalic VARIABLE LIE 06/19/19 cephalic, AMBIKA 16.6cm 06/26/19 Breech, EFW 4111gm >90%ile, AC >97%ile Hypertension affecting cgfnbxqaw83 Overview (06/12/2019): Baseline HELLP labs wnl Baseline 24 protein 140 11/29/18 On Aspirin 81mg Procardia 30mg XL qd Weekly NST and AMBIKA 32-36 wks 2xweek NST and weekly AMBIKA 36wks-delivery Growth US q4wks 05/22/19 MFM US 33w1d EFW 69% AC>97% Hx of preeclampsia, prior , currently kwdcsfot53 Overview (05/22/2019): Prophylactic aspirin Previous delivery, owlrfobzka38 Overview (06/19/2019): 05/22/19 Op Note requested 08/2017 Op Note scanned into Media 06/08/19 Primary low transverse confirmed 06/12/19 Dr Kathleen note: Calculator 64.8% success rate; TOLAC vs repeat Discussion held and consent completed; Voices understanding of need for cephalic presentation; Desires TOLAC History of gestational diabetes in prior , currently uxmoafwq66/25/2019 07/09/2019 Overview (06/12/2019): Early 1hr 121 1h OGTT 90 04/04/19 26 weeks Personal history of orxreagomq66Obesity affecting Immunizations ImmunizationAdministration DatesNext EdgUlqo0105/22/2019 Family History Medical HistoryRelationNameCommentsHeart diseaseFatherMental illnessFatherAnemia MotherKidney diseaseMotheralcoholism and eating disorderNeuropathyMotherCancer Paternal Grandmotherunknown primaryRelationNameStatusCommentsFatherAliveMaternal GrandfatherAliveMaternal GrandmotherAliveMotherAlivePaternal GrandfatherAlive Paternal GrandmotherDeceased Social History Tobacco UseTypesPacks/DayYears UsedDateSmoking Tobacco: Some DaysCigarettes0.516 Smokeless Tobacco: Never Tobacco Cessation:Ready to Q uit: No; Counseling Given: Yes Alcohol UseStandard Drinks/WeekCommentsNot Currently0 (1 standard drink = 0.6 oz pure alcohol)4-5X A YEARChildcareAnswerDate XonlmugzVexgtahlyLybwdxj90/04/2019 EmploymentAnswerDate LqwccifxIbwvmilzltXhebiqx21/04/2019Purpose - LifeAnswerDate RecordedPurpose and direction in jtpgAryzumz38/11/2021CommentsNoSex and Gender InformationValueDate RecordedSex Assigned at BirthNot on fileLegal Sex Hxougs9511/04/2015 11:19 AM ESTGender IdentityNot on fileSexual OrientationNot on file Last Filed Vital Signs Vital SignReadingTime TakenCommentsBlood Jzmejuxw930/9009 9:16 AM EDT Rwmje289107/01/2019 8:00 AM SWVEkjukypbxtk32.8 ??C (98.3 ??F)07/09/2019 9:16 AM EDTRespiratory Jnhq971707/01/2019 8:00 AM EDTOxygen Wjtluymojo649%06/28/2019 12:30 PM EDTInhaled Oxygen Concentration--Bojrwx299.2 kg (232 lb)07/09/2019 9:16 AM WMEEthqlz370.4 cm (5')07/09/2019 9:16 AM EDTBody Mass Index45.31007/09/2019 9:16 AM EDT Plan of Treatment Health MaintenanceDue DateLast DoneCommentsDepression Vdczltfes49/07/2003Tobacco Gwwpfmopw90/07/2003Adult BMI Ocogajtck26/07/2009Pap Smear2012Influenza Ldhlzrh3707/01/2025DTaP,Tdap and Td Vaccines (2 - Td or Tdap) Medical Devices Not on file Insurance Advance Directives * Full Code (Latest Code Status on File) Date ActivatedDate InactivatedComments06/27/2019 4:06 PM07/01/2019 3:15 PM * Full Code Date ActivatedDate InactivatedComments06/27/2019 11:05 AM06/27/2019 4:06 PM * Full Code Date ActivatedDate InactivatedComments06/27/2019 8:48 AM06/27/2019 11:04 AM * Full Code Date ActivatedDate InactivatedComments06/26/2019 2:47 PM06/26/2019 4:53 PM Care Teams Team MemberRelationshipSpecialtyStart DateEnd Date Yasir Mcmahan MD PCP - GeneralFamily Medicine06/05/19
--- OUTSIDE RECORDS SUMMARY | 2025-09-20 11:25 | XMS_ITS | Clinical Summary ---
Author Organization [facility] Address [address] [place] [address] Care Team Providers Care Eating Disorder Specialist Name Role Phone Yasir Mcmahan MD Primary Care Provider [phone] Allergies No known active allergies Medications No known medications Active Problems ProblemNoted DateDiagnosed DateGAD (generalized anxiety disorder)02/01/2024 Assessment & Plan (02/01/2024 8:03 AM EDT): Occasional anxiety attacks and discussed PRN medication but declined. Monitor. Annual physical exam11/03/2023 Assessment & Plan (11/03/2023 2:07 PM EST): Due for labs. Discussed proper diet and regular aerobic exercise. Need aerobic exercise 5-6 days a week for 30 minutes at a time. Smaller portions and limit total calories. Colonoscopy after age 45. Tetanus every 10 years. Advised not to smoke. Discussed daily Aspirin therapy. Arthralgia of multiple wntbtg2010/12/20234033Qmjpternmugm63/13/2023Hiatal hernia 10/12/2023Obesity (BMI 30-39.9)10/12/2023 Assessment & Plan (02/01/2024 8:02 AM EDT): Weight down 10 pounds since last visit. Discussed proper diet and regular aerobic exercise. Recommend Weight Watchers and need to limit calories and smaller portions. Need to increase activity and regular aerobic exercise several days a week for 30 minutes at a time. Vitamin D bpyhbozhdf61/13/2023ipolar 1 ysmcawja23/30/2023 Assessment & Plan (02/01/2024 8:02 AM EDT): No symptoms and doing well without medication. Monitor. Benign essential glrluhpaqnnr90/30/2023 Assessment & Plan (02/01/2024 8:02 AM EDT): BP normal without medication and monitor PRN. Discussed DASH diet. Assessment & Plan (11/03/2023 2:07 PM EST): BP controlled and monitor PRN. Discussed DASH diet. Resolved Problems ProblemNoted DateDiagnosed DateResolved ZsccJotsbnr77 Family History Medical HistoryRelationNameCommentsCoronary artery diseaseFatherHeart disease FatherMental illnessFatherAnemiaMotherHypertensionMotherMultiple gestationSister RelationNameStatusCommentsFatherMotherSister Social History Tobacco UseTypesPacks/DayYears UsedDateSmoking Tobacco: FormerCigarettes0.923694 - 2022Smokeless Tobacco: NeverPHQ-2AnswerDate RecordedPatient Health Questionnaire-2 Zbzip158CommentsUnknownSex and Gender InformationValueDate RecordedSex Assigned at BirthNot on fileLegal SexFemale 01/12/2023 7:09 PM EDTGender IdentityNot on fileSexual OrientationNot on file Last Filed Vital Signs Vital SignReadingTime TakenCommentsBlood Mswblsgw486/7804 7:23 AM EDT Gqdpl0921 7:23 AM PYBHxlsptvpecy08.6 ??C (97.8 ??F)02/01/2024 7:23 AM EDTRespiratory Knkz009302/01/2024 7:23 AM EDTOxygen Txbjvfhrxl29%02/01/2024 7:23 AM EDTInhaled Oxygen Concentration--Xrfjvq32.3 kg (177 lb)02/01/2024 7:23 AM EDT Gjlwuz132.4 cm (5')02/01/2024 7:23 AM EDTBody Mass Index34.57002/01/2024 7:23 AM EDT Plan of Treatment Not on file Care Teams Team MemberRelationshipSpecialtyStart DateEnd Date Yasir Mcmahan MD [facility]02/01/24
--- OUTSIDE RECORDS SUMMARY | 2025-09-20 11:26 | XMS_ITS | Clinical Summary ---
Author Organization [facility] Address [address] [place] [address] Care Team Providers Care Die Sinker Name Role Phone Unavailable Primary Care Provider Unavailabl e Social History Tobacco UseTypesPacks/DayYears UsedDateSmoking Tobacco: Never AssessedUT Safety & EnvironmentAnswerDate RecordedFear of Current or Ex-PartnerNot on file 12/22/2023Emotionally AbusedNot on file4Physically AbusedNot on file 12/22/2023Sexually AbusedNot on file12/22/2023hysically or Sexually AbusedNot on file4CommentsUnknownSex and Gender InformationValueDate RecordedSex Assigned at BirthNot on fileLegal IswLnjhgn29/30/2022 12:45 AM EDT Gender IdentityNot on fileSexual OrientationNot on file Plan of Treatment Not on file
--- OUTSIDE RECORDS SUMMARY | 2025-09-20 11:26 | XMS_ITS | CCD ---
Author Organization [facility] CliniSytn Care Team Providers Care Continuous Still Operator Name Role Phone BIRD, DR YASIR Cox Primary Care Unavailable CARLITA, DANIEL Admitting Unavailable CARLITA, DANIEL Attending Unavailable CARLITA, DANIEL Consulting Unavailable NADJACKY, DR YASIR Cox Primary Care Unavailable DILLAN, PATSY Gonzalez Admitting Unavailable DILLAN, PATSY Gonzalez Attending Unavailable DILLAN, PATSY Gonzalez Consulting Unavailable NADJACKY, DR YASIR Cox Primary Care Unavailable FLACA, DR EMMANUEL Ashton Admitting Unavailable FLACA, DR EMMANUEL Ashton Attending Unavailable FLACA, DR EMMANUEL Ashton Consulting Unavailable NADEREPoli, DR YASIR Cox Admitting Unavailable BIRD, DR YASIR Cox Attending Unavailable BIRD, DR YASIR Cox Primary Care Unavailable CHERI, DR RENETTA Ashton Consulting Unavailable NADERER, DR YASIR Cox Consulting Unavailable NADEREPoli, DR YASIR Cox Admitting Unavailable DAVIEEREPoli, DR YASIR Cox Attending Unavailable NADEREPoli, DR YASIR Cox Primary Care Unavailable NADEREPoli, DR YASIR Cox Consulting Unavailable NADERER, YASIR Attending Unavailable NADERER, YASIR Attending Unavailable Davieerer Yasir NOLAN Primary Care Provider [phone] Yasir Mcmahan MD Attending Provider [phone] Allergies Allergy ClassificationReported Allergen(s)Allergy TypeDate of OnsetReaction(s) Facility (1 source)Adrenergic Beta-AntagonistsDrug allergy (disorder)[phone] (1 source)QUEtiapineDrug AllergyThe [facility] Problems Active Problems Problem ClassificationProblemDateDocumented DateEpisodic/ChronicAbdominal hernia (2 sources)Diaphragmatic hernia without obstruction or gangrene; Translations: [Hiatal hernia]Onset: [phone] disorders (1 source)Generalized anxiety disorder; Translations: [Generalized anxiety disorder]68-86-1149EcinnswMjnzxswpac associated with dizziness or vertigo (6 sources)Dizziness and giddiness; Translations: [Benign paroxysmal positional vertigo]Onset: 33-96-3381FlbnogbiDyxxhukwf of lipid metabolism (1 source)Dyslipidemia; Translations: [Hyperlipidemia, unspecified]08-29-2025 ChronicEsophageal disorders (1 source)Gastro-esophageal reflux disease without esophagitis; Translations: [GERD WITHOUT ESOPHAGITIS]Onset: 47-19-9477XcbkkiqVgdwtiyhq hypertension (3 sources)Essential (primary) hypertension; Translations: [Benign essential hypertension]Onset: 709309-32-7339IrhfvccFregnzofxecocknb hemorrhage (4 sources)Hemorrhage of anus and rectum; Translations: [HEMORRHAGE OF ANUS AND RECTUM]Onset: 89-64-1964ScvfhttoFlvi disorders (1 source)Bipolar I disorder; Translations: [Bipolar disorder, unspecified] 38-99-4096MjlncucYqmmxytimqi deficiencies (1 source)Vitamin D deficiency; Translations: [Vitamin D deficiency, unspecified]91-50-2246KvjmfhtYdhzk non-traumatic joint disorders (1 source)Multiple joint pain; Translations: [Pain in unspecified joint] 47-58-9470EkwfewsbSnrio nutritional; endocrine; and metabolic disorders (1 source)Obese class I; Translations: [Class 1 obesity]21-84-5868Ayghwge Poisoning by other medications and drugs (1 source)Poisoning by unspecified drugs, medicaments and biological substances, accidental (unintentional), initial encounter; Translations: [Accidental overdose]64-88-1554OxfnkpovNakhuzwph-related disorders (1 source)Nicotine dependence, cigarettes, uncomplicated; Translations: [NICOTINE DEPEND CIGARETTES UNCOMP]Onset: 06-28-8984KibwgtjRjmwvfj disorders (1 source)Nontoxic goiter, unspecified; Translations: [NONTOXIC GOITER UNSPECIFIED]Onset: 65-61-0418Cvrbaap Past or Other Problems Problem ClassificationProblemDateDocumented DateEpisodic/ChronicGenitourinary symptoms and ill-defined conditions (4 sources)Dysuria; Translations: [DYSURIA]Onset: 08-36-7819QddpvskvLaboywextqmw diseases of female pelvic organs (1 source)Acute vaginitis; Translations: [ACUTE VAGINITIS]Onset: 03-16-2022 EpisodicOther aftercare (1 source)Other snf (current) drug therapy; Translations: [OTH NEUROSURGERY SPINE PHYSICIAN CURRENT DRUG THERAPY]Onset: 40-33-9861FmzyfyidVdyqm gastrointestinal disorders (4 sources)Dysphagia, unspecified; Translations: [DYSPHAGIA UNSPECIFIED]Onset: 76-89-5151IgsjodhpCpdji injuries and conditions due to external causes (4 sources)Foreign body in vulva and vagina, initial encounter; Translations: [FOREIGN BODY VULVA VAGINA INIT ENC]Onset: 06-69-3440UjtpfgnqExqgiry tract infections (1 source)Urinary tract infection, site not specified; Translations: [UTI SITE NOT SPECIFIED]Onset: 06-13-2634Iqkfwkzf Results Test NameValueInterpretationReference RangeFacilityCBC AUTO DIFFon 09-05-2022 BASO #0.1 103/ulNormal0.0-0.1[facility] ColumbusComment on above:Performed By: #### DANILO CANTU ERUR #### [facility] [address] [address] [address] Espinoza ChangBasophils/100 WBC (Bld)0.6 %Normal0.2-2.0[facility] Comment on above:Performed By: #### DANILO CANTU ERUR #### [facility] [address] [address] [address] Alexis Gaspar #0.3 103/ulNormal0.0-0.7The Doctors HospitalComment on above: Performed By: #### DANILO CANTU, ERUR #### [facility] [address] [address] [address] Alexis Tijerinaosinophils/100 WBC (Bld)2.5 %Normal0.9-7.0[facility] Comment on above:Performed By: #### DANILO CANTU ERUR #### [facility] [address] [address] [address] Alexis Tijerinarythrocyte distribution width (RBC) [Ratio]15.9 %Critically high 11.0-15.0[facility] Hospitalment on above:Performed By: #### DANILO CANTU, ERUR #### [facility] [address] [address] [address] Alexis PetersenHematocrit (Bld) [Volume fraction]42.6 %Sdaqhh88.0-48.0The Doctors HospitalComment on above:Performed By: #### DANILO CANTU, ERUR #### [facility] [address] [place] [address] Dr. Alexis PetersenHemoglobin (Bld) [Mass/Vol]14.1 g/eCBdarvy58.0-16.0The [facility] HospitalComment on above:Performed By: #### DANILO CANTU, ERUR #### [facility] [address] [place] [address] Dr. Alexis Graham #0.05 10e3/ulCritically high0.00-0.03[facility] Comment on above:Performed By: #### DANILO CANTU, ERUR #### [facility] [address] [place] [address] Dr. Alexis Graham %0.5 %Normal0.0-0.5The Doctors HospitalComment on above: Performed By: #### DANILO CANTU, ERUR #### [facility] [address] [place] [address] Dr. Alexis Gupta #2.6 103/ulNormal1.2-3.8The Doctors HospitalComment on above:Performed By: #### DANILO CANTU, ERUR #### [facility] [address] [place] [address] Dr. Alexis Martinezmphocytes/100 WBC (Bld)25.4 %Alcayw70.5-60.0The Doctors HospitalComment on above:Performed By: #### DANILO CANTU, ERUR #### [facility] [address] [place] [address] Dr. Alexis PetersenMANUAL DIFF REQNONormalThe Doctors HospitalComment on above: Performed By: #### DANILO CANTU, ERUR #### [facility] [address] [place] [address] Dr. Alexis Epperson (RBC) [Entitic mass]28.3 kyKtfcno97.7-34.0The Doctors HospitalComment on above:Performed By: #### DANILO CANTU, ERUR #### [facility] [address] [place] [address] Dr. Alexis Epperson (RBC) [Mass/Vol]33.1 g/kUBeunsx85.9-35.2The Doctors HospitalComment on above:Performed By: #### DANILO CANTU, ERUR #### [facility] [address] [place] [address] Dr. Alexis Epperson (RBC) [Entitic vol]85.5 cMNghjrm20.0-99.0The [facility] HospitalComment on above:Performed By: #### DANILO CANTU, ERUR #### [facility] [address] [place] [address] Dr. Alexis Shabazz #0.6 103/ulNormal0.3-0.8The Doctors HospitalComment on above:Performed By: #### DANILO CANTU, ERUR #### [facility] [address] [place] [address] Dr. Alexis Mariaocytes/100 WBC (Bld)6.2 %Normal1.7-12.0[facility] Comment on above:Performed By: #### EFRAIN CANTURO, ERUR #### [facility] [address] [place] [address] Dr. Alexis Schulz #6.6 103/ulCritically high1.4-6.5[facility] Comment on above:Performed By: #### DANILO CANTU, ERUR #### [facility] [address] [place] [address] Dr. Alexis Sanchezophils/100 WBC (Bld)64.8 %Zrjzzg80.0-75.0The [facility] Hospitalment on above:Performed By: #### DANILO CANTU, ERUR #### [facility] [address] [place] [address] Dr. Alexis PetersenPlatelet mean volume (Bld) [Entitic vol]9.7 fLNormal9.5-13.5The [facility] on above:Performed By: #### DANILO CANTU, ERUR #### [facility] [address] [place] [address] Dr. Alexis PetersenPLT298 103/lbXracgs713-731Irj [facility] on above: Performed By: #### DANILO CANTU, ERUR #### [facility] [address] [place] [address] Dr. Alexis PetersenRBC4.98 106/ulNormal4.20-5.40The [facility] on above:Performed By: #### DANILO CANTU, ERUR #### [facility] [address] [place] [address] Dr. Alexis PetersenWBC10.1 103/ulNormal4.0-11.0The [facility] on above:Performed By: #### DANILO CANTU, ERUR #### [facility] [address] [place] [address] Dr. Alexis PetersenOCC BLD IMMUNO SCREENon [id number] BLOODNegativeNormal NEGATIVEThe [facility] on above:Performed By: #### OBSCRN #### [facility] [address] [place] [address] Dr. Alexis PetersenPROViviana 14(COMP METB)on 99-44-1607Unbrunb [Mass/Vol]3.7 g/dLNormal 3.4-5.0The [facility] on above:Performed By: #### CMP #### [facility] [address] [place] [address] Dr. Alexis PetersenAlbumin/Globulin [Mass ratio]1.1 {ratio}NormalThe Kathrin HospitalComment on above:Performed By: #### CMP #### [facility] [address] [address] [address] Alexis Archibald [Catalytic activity/Vol]78 U/AHuqszn42-659Oej Doctors HospitalComment on above:Performed By: #### CMP #### [facility] [address] [address] [address] Alexis HernandezT [Catalytic activity/Vol]22 U/JIjeovz23-79Vmr [facility] HospitalComment on above:Performed By: #### CMP #### [facility] [address] [address] [address] Alexis Jewellon gap [Moles/Vol]9.6 mmol/LNormalThe Doctors HospitalComment on above:Performed By: #### CMP #### [facility] [address] [address] [address] Alexis PetersenAST [Catalytic activity/Vol]11 U/LCritically fol33-06Rex Doctors HospitalComment on above:Performed By: #### CMP #### [facility] [address] [address] [address] Alexis PetersenBilirubin [Mass/Vol]0.2 mg/dLNormal0.2-1.0[facility] Comment on above:Performed By: #### CMP #### [facility] [address] [address] [address] Alexis PetersenCalcium [Mass/Vol]9.2 mg/dLNormal8.5-10.1[facility] Comment on above:Performed By: #### CMP #### [facility] [address] [address] [address] Alexis PetersenChloride [Moles/Vol]105 mmol/ZMcaapf58-476Wtv [facility] Comment on above:Performed By: #### CMP #### [facility] [address] [address] [address] Alexis PetersenCO2 [Moles/Vol]27.1 mmol/SNyaicr92.0-32.0[facility] Comment on above:Performed By: #### CMP #### [facility] [address] [address] [address] Alexis PetersenCreatinine [Mass/Vol]0.79 mg/dLNormal0.55-1.02The Doctors HospitalComment on above:Performed By: #### CMP #### [facility] [address] [address] [address] Alexis TijerinaGFR-AF ERITREAN>60Normal>=60The Doctors HospitalComment on above:Performed By: #### CMP #### [facility] [address] [address] [address] Alexis TijerinaGFR-NON AF ERITREAN>60Normal>=60The [facility] HospitalComment on above:Performed By: #### CMP #### [facility] [address] [place] [address] Dr. Alexis PetersenGlobulin (S) [Mass/Vol]3.4 g/dLNormalThe Doctors HospitalComment on above:Performed By: #### CMP #### [facility] [address] [place] [address] Dr. Alexis PetersenGlucose [Mass/Vol]118 mg/dLCritically nsfr46-625Izb [facility] HospitalComment on above:Performed By: #### CMP #### [facility] [address] [place] [address] Dr. Alexis PetersenPotassium [Moles/Vol]3.7 mmol/LNormal3.5-5.1[facility] Comment on above:Performed By: #### CMP #### [facility] [address] [place] [address] Dr. Alexis PetersenProtein [Mass/Vol]7.1 g/dLNormal6.4-8.2[facility] Comment on above:Performed By: #### CMP #### [facility] [address] [place] [address] Dr. Alexis PetersenSodium [Moles/Vol]138 mmol/CBbsaxz586-671Ylx [facility] Comment on above:Performed By: #### CMP #### [facility] [address] [place] [address] Dr. Alexis Puentes nitrogen [Mass/Vol]12.0 mg/dLNormal7.0-18.0[facility] ColumbusComment on above:Performed By: #### CMP #### [facility] [address] [place] [address] Dr. Alexis Puentes nitrogen/Creatinine [Mass ratio]15.2 mg/mgNoUniversity Hospitals Beachwood Medical CenterComment on above:Performed By: #### CMP #### [facility] [address] [place] [address] Dr. Alexis PetersenPROTIMEon [id number] Coag (PPP) [Relative time]0.97 {INR} NormalThe Doctors HospitalComsturgis hospital on above:Performed By: #### DANILO CANTU ERUR #### [facility] [address] [place] [address] Dr. Alexis Torres GUIDELINESSEE BELOWProMedica Toledo HospitalComment on above:Result Comment: DESIRED INR: 2.0 - 3.0 CONDITIONS NOT LISTED BELOW 2.5 - 3.5 FOR PROSTHETIC HEART VALVE REPLACEMENT 2.5 - 3.5 RECURRENT THROMBOSIS Performed By: #### DANILO CANTU ERUR #### [facility] [address] [place] [address] Dr. Alexis PetersenPT Coag (PPP) [Time]10.5 sNormal9.0-11.6[facility] Comment on above:Performed By: #### DANILO CANTU ERUR #### [facility] [address] [place] [address] Dr. Alexis Madrid [id number] Coag (Bld) [Time]28.8 uUbxkdj62.3-36.2[facility] on above:Performed By: #### DANILO CANTU ERUR #### [facility] [address] [place] [address] Dr. Alexis TalamantesITAL CULTUREon [id number] Culture, RoutineFinal report NormalThe [facility] on above:Performed By: #### PREGU, UMICRO, ERUR #### [facility] [address] [place] [address] Dr. Alexis Palomino 1ComThe Surgical Hospital at SouthwoodsComment on above:Result Comment: Routine genital jaime.Performed By: #### PREGU UMICRO, ERUR #### [facility] [address] [place] [address] Dr. Alexis Herrera URINEon [id number] URINECulture Observations: LEE to follow Isolate 1 Escherichia Coli 50,000 cfu/ml [facility] HospitalComsturgis hospital on above:Performed By: #### PREGUPRESTONICWOO, ERUR #### [facility] [address] [place] [address] Dr. Alexsi uHdson URINE PROFILEon [id number] Ql (U)SMALLAbnormal NEGATIVESelect Medical Specialty Hospital - ColumbusComment on above:Performed By: #### PREGUPRESTONICRO, ERUR #### [facility] [address] [place] [address] Dr. Alexis PetersenClarity (U)CLOUDYAbnormalCLEARThKettering HealthComment on above:Performed By: #### PREGUPRESTONICRO, ERUR #### [facility] [address] [place] [address] Dr. Alexis Smith (U)ORANGEAbnormalYELLOWSelect Medical Specialty Hospital - ColumbusComsturgis hospital on above:Performed By: #### PREGUPRESTONICRO, ERUR #### [facility] [address] [place] [address] Dr. Alexis Holloway micrscopic examination will be performed if indicated. NormalSelect Medical Specialty Hospital - ColumbusComment on above:Performed By: #### PREGU UMICRO, ERUR #### [facility] [address] [place] [address] Dr. Alexis PetersenGlucose Ql (U)NegativeNormalNEGATIVESelect Medical Specialty Hospital - ColumbusComsturgis hospital on above:Performed By: #### PREGU UMICRO, ERUR #### [facility] [address] [place] [address] Dr. Alexis PetersenHemoglobin Ql (U)LARGEAbnormalNEGATIVESelect Medical Specialty [facility] [place] Comment on above:Performed By: #### DANILO CANTU, ERUR #### [facility] [address] [address] [address] Alexis PetersenKetones Ql (U)15 mg/dlAbnormalNEGATIVESelect Medical [facility]ty [facility] [place] Comment on above:Performed By: #### DANILO CANTU, ERUR #### [facility] [address] [address] [address] Alexis PetersenLEUKOCYTESMODERATEAbnormalNEGATIVESelect Medical Specialty Hospital - ColumbusComment on above:Performed By: #### DANILO CANTU, ERUR #### [facility] [address] [address] [address] Alexis PetersenNitrite Ql (U)PositiveAbrmalNEGAshtabula County Medical Center Comment on above:Performed By: #### DANILO CANTU, ERUR #### [facility] [address] [address] [address] Alexis PetersenpH (U)5.0 [pH]Normal5-9[facility] - ColumbusComment on above: Performed By: #### DANILO CANTU, ERUR #### [facility] [address] [address] [address] Alexis PetersenSPEC GRAVITY>=1.249Mckeahdl9.005-<=1.025[facility] Comment on above:Performed By: #### DANILO CANTU, ERUR #### [facility] [address] [address] [address] Alexis PetersenUA PROTEIN>300AbnormalNEGATIVE/ TRACEThe Doctors HospitalComment on above:Performed By: #### DANILO CANTU, ERUR #### [facility] [address] [address] [address] Alexis PetersenUR MICRO INDINDICATEDNormalThKettering HealthComment on above: Performed By: #### DANILO CANTU, ERUR #### [facility] [address] [address] [address] Alexis Lyon Qn (U)1.0 {Justin'U}/dLNormal0.2 - 1.0The [facility] Hospitalment on above:Performed By: #### PRESTON CANTUICWOO, ERUR #### [facility] [address] [place] [address] Dr. Alexis Muhammad URon [id number], QUALNegativeNormalNEGATIVEThe Doctors HospitalComment on above:Performed By: #### PREGU, UMICRO, ERUR #### [facility] [address] [address] [address] Alexis Easley MICROSCOPIC ONLYon [id number]Q SEEN The [facility] HospitalComsturgis hospital on above:Performed By: #### PRESTON CANTUICRO, ERUR #### [facility] [address] [address] [address] Alexis Alvarez identified Cx Nom (U)INDICATEDProMedica Toledo HospitalComment on above:Performed By: #### RASHEEDUPRESTONICRO, ERUR #### [facility] [address] [place] [address] Dr. Alexis Quiroga SEENNormalNONE SEENGrant Hospital on above:Performed By: #### PREGUPRESTONICRO, ERUR #### [facility] [address] [address] [address] Alexis Villalobos LM Nom (Urine sed)NONE SEENNormalNONE SEENSelect Medical Specialty Hospital - ColumbusComsturgis hospital on above:Performed By: #### PREGU, UMICRO, ERUR #### [facility] [address] [place] [address] Dr. Espinoza ChangEpithelial cells LM Ql (Urine sed)FEWAbnormalNONE SEEN /RAREThe Doctors HospitalComment on above:Performed By: #### PREGU, UMICRO, ERUR #### [facility] [address] [place] [address] Dr. Alexis SummersCOUSNONE SEENNormalNONE SEENOhio State East Hospitalment on above:Performed By: #### DANILO CANTU, ERUR #### [facility] [address] [address] [address] Alexis Gutierrez (U) [#/Vol]/uLAbnormal0-2The [facility] Hospitalment on above:Performed By: #### DANILO CANTU, ERUR #### [facility] [address] [address] [address] Alexis IbarraVhrjyBOV37-44OmvjieqrZWML SEENSelect Medical Specialty Hospital - ColumbusComsturgis hospital on above: Performed By: #### DANILO CANTU ERUR #### [facility] [address] [place] [address] Dr. Alexis Leong PREPon 21-19-7057MVEG CELLSSEENAbnormalNONE SEENSelect Medical Specialty Hospital - ColumbusComsturgis hospital on above:Performed By: #### WP #### [facility] [address] [place] [address] Dr. Alexis MccartneyNGBÁRBARA ELEMENTSNONE SEENNormalNONE SEENKettering Health Springfield on above:Performed By: #### WP #### [facility] [address] [address] [address] Alexis Gutierrez -WET PREPMANYAbnormalNONE SEENGrant Hospital on above:Performed By: #### WP #### [facility] [address] [address] [address] Alexis JasmineHOMONASNONE SEENNormalNONE SEENSelect Medical Specialty Hospital - ColumbusComsturgis hospital on above:Performed By: #### WP #### [facility] [address] [address] [address] Alexis Iabrra- WET PREPFEWAbnormalNONE SEENGrant Hospital on above:Performed By: #### WP #### [facility] [address] [address] [address] Alexis Leong PREP BACTERIARAREAbnormalNONE SEENThe [facility] Comment on above:Performed By: #### WP #### [facility] [address] [place] [address] Dr. Alexis Herrera URINEon [id number] URINEIsolate 1 Escherichia coli >100,000 cfu/mL of ORGANISM 1 Escherichia coli ANTIBIOTIC M.I.C RX STATUS Ampicillin <=2 S F Ampicillin/Sulbactam <=2 S F Piperacillin/Tazobactam <=4 S F Cefazolin <=4 S F Ceftazidime <=1 S F Ceftriaxone <=1 S F Ertapenem <=0.5 S F Imipenem <=0.25 S F Amikacin <=2 S F Gentamicin <=1 S F Tobramycin <=1 S F Ciprofloxacin <=0.25 S F Levofloxacin <=0.12 S F Nitrofurantoin <=16 S F Trimethoprim/Sulfamethoxazole <=20 S FNormalThe Doctors HospitalComment on above:Performed By: #### DANILO CANTU ERUR #### [facility] [address] [place] [address] Dr. Alexis Peters T3on [id number] T32.77 pg/mlLNormal2.77-5.27[facility] - ColumbusComment on above:Performed By: #### TSH, FT3 #### [facility] [address] [place] [address] Dr. Alexis Peters T4on 45-26-0038Cmle T4 [Mass/Vol]0.83 ng/dLNormal0.78-2.19 The Doctors HospitalComment on above:Performed By: #### DANILO CANTU ERUR #### [facility] [address] [place] [address] Dr. Alexis Dennis 80-95-6137AOH5.508 uIU/mLNormal0.470-4.680[facility] - ColumbusComment on above:Performed By: #### TSH, FT3 #### [facility] [address] [place] [address] Dr. Alexis Palm [facility] HospitalComment on above: Result Comment: <0.34 UIU/ml HYPERTHYROID 0.34-5.60 UIU/ml EUTHYROID >5.60 UIU/ml HYPOTHYROIDPerformed By: #### TSH, FT3 #### [facility] [address] [address] [address] Alexis Vail THYROIDon [id number] THYROIDEXAMINATION: US THYROID HISTORY: Simple goiter COMPARISON: Ultrasound [...] year if clinically indicated. TR 4: The [employer] TI-RADS committee's white paper recommendations for thyroid lesions classified as TR4 (moderately suspicious) are listed below: > 1.0 cm. Follow-up ultrasound in 1, 2, 3, and 5 years. > 1.5 cm. FNA. J. Am Mason Radiol 2017;14:587-595. Electronically authenticated by: RENETTA ALONZO Date: 2022-02-05 10:[address] [place] [address] AUTO DIFFon [id number] #0.1 103/ulNormal0.0-0.1The Doctors HospitalComment on above:Performed By: #### DANILO CANTU ERUR #### [facility] [address] [address] [address] Alexis PetersenBasophils/100 WBC (Bld)0.8 %Normal0.2-2.0[facility] Comment on above:Performed By: #### DANILO CANTU ERUR #### [facility] [address] [address] [address] Alexis Gaspar #0.3 103/ulNormal0.0-0.7The Doctors HospitalComment on above: Performed By: #### DANILO CANTU, ERUR #### [facility] [address] [address] [address] Alexis Tijerinaosinophils/100 WBC (Bld)3.3 %Normal0.9-7.0[facility] Comment on above:Performed By: #### DANILO CANTU, ERUR #### [facility] [address] [address] [address] Alexis Tijerinarythrocyte distribution width (RBC) [Ratio]15.6 %Critically high 11.0-15.0The Doctors HospitalComment on above:Performed By: #### DANILO CANTU, ERUR #### [facility] [address] [address] [address] Alexis PetersenHematocrit (Bld) [Volume fraction]40.0 %Xiuxas51.0-48.0The Doctors HospitalComment on above:Performed By: #### DANILO CANTU, ERUR #### [facility] [address] [address] [address] Alexis PetersenHemoglobin (Bld) [Mass/Vol]13.3 g/dSRydpht98.0-16.0The Doctors HospitalComment on above:Performed By: #### DANILO CANTU, ERUR #### [facility] [address] [address] [address] Alexis PetersenIG #0.06 10e3/ulCritically high0.00-0.03[facility] Comment on above:Performed By: #### DANILO CANTU, ERUR #### [facility] [address] [address] [address] Alexis PetersenIG %0.7 %Critically high0.0-0.5The Doctors HospitalComment on above:Performed By: #### DANILO CANTU, ERUR #### [facility] [address] [address] [address] Alexis LeonH #2.8 103/ulNormal1.2-3.8The Doctors HospitalComment on above:Performed By: #### PREGU, UMICRO, ERUR #### [facility] [address] [place] [address] Dr. Alexis Martinezmphocytes/100 WBC (Bld)31.3 %Dyxscd01.5-60.0The Doctors HospitalComment on above:Performed By: #### PREGU, UMICRO, ERUR #### [facility] [address] [place] [address] Dr. Alexis ReyesUAL DIFF REQNONormalThe Doctors HospitalComment on above: Performed By: #### PREGU, UMICRO, ERUR #### [facility] [address] [place] [address] Dr. Alexis Epperson (RBC) [Entitic mass]29.3 zwCevams20.7-34.0The Doctors HospitalComment on above:Performed By: #### PREGUPRESTONICRO, ERUR #### [facility] [address] [place] [address] Dr. Alexis Epperson (RBC) [Mass/Vol]33.3 g/vVVhhjsv72.9-35.2The Doctors HospitalComment on above:Performed By: #### PREGU, UMICRO, ERUR #### [facility] [address] [place] [address] Dr. Alexis Epperson (RBC) [Entitic vol]88.1 gAFtcoih32.0-99.0The Doctors HospitalComment on above:Performed By: #### PREGU, UMICRO, ERUR #### [facility] [address] [place] [address] Dr. Alexis Shabazz #0.7 103/ulNormal0.3-0.8The Doctors HospitalComment on above:Performed By: #### PREGU, UMICRO, ERUR #### [facility] [address] [place] [address] Dr. Alexis Mariaocytes/100 WBC (Bld)7.6 %Normal1.7-12.0[facility] Comment on above:Performed By: #### PREGUPRESTONICRO, ERUR #### [facility] [address] [place] [address] Dr. Alexis Schulz #5.0 103/ulNormal1.4-6.5The Doctors HospitalComment on above:Performed By: #### PREGUPRESTONICWOO, ERUR #### [facility] [address] [place] [address] Dr. Alexis Moiseutrophils/100 WBC (Bld)56.3 %Squqlt72.0-75.0The Doctors HospitalComment on above:Performed By: #### PREGUDANILO, ERUR #### [facility] [address] [place] [address] Dr. Alexis PetersenPlatelet mean volume (Bld) [Entitic vol]11.1 fLNormal9.5-13.5The Doctors HospitalComment on above:Performed By: #### PREGUPRESTONICRO, ERUR #### [facility] [address] [place] [address] Dr. Alexis PetersenPLT270 103/foRtkefk105-188Qxm Doctors HospitalComment on above: Performed By: #### PREGUPRESTONICRO, ERUR #### [facility] [address] [place] [address] Dr. Alexis PetersenRBC4.54 106/ulNormal4.20-5.40The Doctors HospitalComment on above:Performed By: #### PREGU, UMICRO, ERUR #### [facility] [address] [place] [address] Dr. Alexis PetersenWBC8.8 103/ulNormal4.0-11.0The Doctors HospitalComment on above: Performed By: #### PREGU, UMICRO, ERUR #### [facility] [address] [place] [address] Dr. Espinoza ChangEPoli URINE PROFILEon 45-49-5641Jhiepmxth Ql (U)NegativeNormal NEGATIVEThe Doctors HospitalComment on above:Performed By: #### PREGU, ERUR #### [facility] [address] [address] [address] Alexis Shieldsarity (U)CLEARNormalCLEARSelect Medical Specialty Hospital - ColumbusComment on above: Performed By: #### PREGU, ERUR #### [facility] [address] [address] [address] Alexis Smith (U)LT. YELLOWNormalYELLOWSelect Medical Specialty Hospital - ColumbusComment on above:Performed By: #### PREGU, ERUR #### [facility] [address] [address] [address] Alexis Holloway micrscopic examination will be performed if indicated. NormalSelect Medical Specialty Hospital - ColumbusComment on above:Performed By: #### PREGU, ERUR #### [facility] [address] [address] [address] Alexis PetersenGlucose Ql (U)NegativeNormalNEGATIVESelect Medical Specialty Hospital - ColumbusComment on above:Performed By: #### PREGU, ERUR #### [facility] [address] [address] [address] Alexis PetersenHemoglobin Ql (U)NegativeNormalNEGCommunity Memorial Hospital on above:Performed By: #### PREGU, ERUR #### [facility] [address] [address] [address] Alexis PetersenKetones Ql (U)NegativeNormalNEGATIVESelect Medical Specialty Hospital - ColumbusComment on above:Performed By: #### PREGU, ERUR #### [facility] [address] [address] [address] Alexis PetersenLEUKOCYTESNegativeNormalNEGATIVESelect Medical Specialty Hospital - ColumbusComsturgis hospital on above:Performed By: #### PREGU, ERUR #### [facility] [address] [address] [address] Alexis PetersenNitrite Ql (U)NegativeNormalNEGATIVESelect Medical Specialty Hospital - ColumbusComment on above:Performed By: #### PREGU, ERUR #### [facility] [address] [address] [address] Alexis PetersenpH (U)6.0 [pH]Normal5-9The Doctors HospitalComment on above: Performed By: #### PEPE, ERUR #### [facility] [address] [place] [address] Dr. Alexis PetersenSPEC GRAVITY1.646Okuhbg9.005-<=1.025The Doctors HospitalComment on above:Performed By: #### PEPE, ERUR #### [facility] [address] [place] [address] Dr. Alexis PetersenUA PROTEINNegativeNormalNEGATIVE/ TRACEThe [facility] Hospital Comment on above:Performed By: #### PEPE, ERUR #### [facility] [address] [place] [address] Dr. Alexis PetersenUR MICRO INDNOT INDICATEDNoalThe Doctors HospitalComment on above:Performed By: #### PEPE, ERUR #### [facility] [address] [place] [address] Dr. Alexis PetersenUrobilinogen Qn (U)0.2 {Justin'U}/dLNormal0.2 - 1.0The Doctors HospitalComment on above:Performed By: #### PEPE, ERUR #### [facility] [address] [place] [address] Dr. Alexis PetersenPREGNANCY URon 72-11-9566OTVSDZWDP, QUALNegativeNormalNEGATIVEThe Doctors HospitalComment on above:Performed By: #### PEPE, ERUR #### [facility] [address] [place] [address] Dr. Alexis PetersenPROF CHEM 8 (BAS METB)on 40-05-2096Ohbhp gap [Moles/Vol]13.9 mmol/LNormalThe Doctors HospitalComment on above:Performed By: #### DANILO CANTU, ERUR #### [facility] [address] [place] [address] Dr. Alexis PetersenCalcium [Mass/Vol]9.1 mg/dLNormal8.5-10.1[facility] Comment on above:Performed By: #### PREGU UMICRO, ERUR #### [facility] [address] [address] [address] Alexis PetersenChloride [Moles/Vol]102 mmol/IXnpuxk37-409ZlmSelect Medical Specialty Hospital - Columbus Comment on above:Performed By: #### PREGUPRESTONICWOO, ERUR #### [facility] [address] [place] [address] Dr. Alexis PetersenCO2 [Moles/Vol]26.4 mmol/LElczvc90.0-30.0[facility] Comment on above:Performed By: #### PREGDANILO Palacio, ERUR #### [facility] [address] [place] [address] Dr. Alexis PetersenCreatinine [Mass/Vol]0.88 mg/dLNormal0.52-1.04Select [facility] Hospital - ColumbusComment on above:Performed By: #### PREGDANILO Palacio, ERUR #### [facility] [address] [place] [address] Dr. Alexis TijerinaGFR-AF ERITREAN>60Normal>=60Select [facility] Hospital - ColumbusComment on above:Performed By: #### PREGPRESTON PalacioICWOO, ERUR #### [facility] [address] [place] [address] Dr. Alexis TijerinaGFR-NON AF ERITREAN>60Normal>=60[facility] Hospital - ColumbusComment on above:Performed By: #### PREGUPRESTONICRO, ERUR #### [facility] [address] [place] [address] Dr. Alexis PetersenGlucose [Mass/Vol]91 mg/pIBdnqmz78-195AouSelect Medical Specialty Hospital - Columbus Comment on above:Performed By: #### PREGU UMICRO, ERUR #### [facility] [address] [place] [address] Dr. Alexis PetersenPotassium [Moles/Vol]4.3 mmol/LNormal3.4-5.0[facility] Comment on above:Performed By: #### PREGU, UMICRO, ERUR #### [facility] [address] [place], [place] [address] Dr. Alexis PetersenSodium [Moles/Vol]138 mmol/IHbkqbf632-770DwlSelect Medical Specialty Hospital - Columbus Comment on above:Performed By: #### PREGU UMICRO, ERUR #### [facility] [address] [address] [address] Alexis PetersenUrea nitrogen [Mass/Vol]13.0 mg/dLNormal7.0-18.0[facility] Hospital - ColumbusComment on above:Performed By: #### PREGU, UMICRO, ERUR #### [facility] [address] [address] [address] Alexis PetersenUrea nitrogen/Creatinine [Mass ratio]14.8 mg/mgNormalThe Doctors HospitalComment on above:Performed By: #### PREGUPRESTONICRO, ERUR #### [facility] [address] [address] [address] Alexis PetersenAcetaminophenon 62-25-5745Ehhdovhvcvxgt [Mass/Vol]ug/mLLow 10.0-30.0[facility] HospitalComment on above:Result Comment: PERFORMED BY: [place] [address] PATHOLOGIST ASSISTED LIVING ADMINISTRATOR VIKKI ERICKSON M.D.Performed By: #### RANJAN, CMP, ETOH, CBC, ACET #### [facility] [address] [place] [address] USAComplete Blood Count Auto Diffon 87-36-7651Zpzoydxvh (Bld) [#/Vol]0.1 10*3/uLNormal0.0-0.2FChildren's Hospital of ColumbusComment on above:Result Comment: PERFORMED BY: [place] [address] PATHOLOGIST ASSISTED LIVING ADMINISTRATOR VIKKI ERICKSON M.D.Performed By: #### RANJAN, CMP, ETOH, CBC, ACET #### [facility] [address] [place] [address] USABasophils/100 WBC (Bld)0.7 %Normal.[facility] HospitalComment on above:Performed By: #### RANJAN, CMP, ETOH, CBC, ACET #### [place] [address] USAEosinophils (Bld) [#/Vol]0.2 10*3/uLNormal0.0-0.45 [facility] HospitalComment on above:Performed By: #### RANJAN, CMP, ETOH, CBC, ACET #### [place] [address] USAEosinophils/100 WBC (Bld)2.3 %Normal.[facility] HospitalComment on above:Performed By: #### RANJAN, CMP, ETOH, CBC, ACET #### [place] [address] USAErythrocyte distribution width (RBC) [Ratio]13.8 %Normal 11.9-15.3FChildren's Hospital of ColumbusComment on above:Performed By: #### RANJAN, CMP, ETOH, CBC, ACET #### [place] [address] USAHematocrit (Bld) [Volume fraction]45.5 %Trtsot58.0-46.4 [facility] HospitalComment on above:Performed By: #### RANJAN, CMP, ETOH, CBC, ACET #### [place] [address] USAHemoglobin (Bld) [Mass/Vol]15.7 g/zOSbpp94.8-15.4FChildren's Hospital of ColumbusComment on above:Performed By: #### RANJAN, CMP, ETOH, CBC, ACET #### [place] [address] USALymphocytes (Bld) [#/Vol]1.6 10*3/uLNormal1.00-4.8 [facility] HospitalComment on above:Performed By: #### RANJAN, CMP, ETOH, CBC, ACET #### [place] [address] USALymphocytes/100 WBC (Bld)15.2 %Normal.[facility] HospitalComment on above:Performed By: #### RANJAN, CMP, ETOH, CBC, ACET #### [address] (RBC) [Entitic mass]32.0 gpFolimu92.7-34.3FChildren's Hospital of ColumbusComment on above:Performed By: #### RANJAN, CMP, ETOH, CBC, ACET #### [address] (RBC) [Entitic vol]92.7 jNTzpomx82-521SknpnuwgmMercy Health Fairfield HospitalComment on above:Performed By: #### RANJAN, CMP, ETOH, CBC, ACET #### [place] [address] USAMean Corpuscular HGB Conc34.5 g/dMGrrnpc39.0-35.0[facility] HospitalComment on above:Performed By: #### RANJAN, CMP, ETOH, CBC, ACET #### [place] [address] USAMonocytes (Bld) [#/Vol]0.4 10*3/uLNormal0.0-0.8[facility] HospitalComment on above:Performed By: #### RANJAN, CMP, ETOH, CBC, ACET #### [place] [address] USAMonocytes/100 WBC (Bld)4.2 %Normal.[facility] HospitalComment on above:Performed By: #### RANJAN, CMP, ETOH, CBC, ACET #### [place] [address] USANeutrophils (Bld) [#/Vol]7.9 10*3/uLHigh1.8-7.7FChildren's Hospital of ColumbusComment on above:Performed By: #### RANJAN, CMP, ETOH, CBC, ACET #### [place] [address] USANeutrophils/100 WBC (Bld)77.6 %Normal.[facility] HospitalComment on above:Performed By: #### RANJAN, CMP, ETOH, CBC, ACET #### [place] [address] USANucleated RBC/100 WBC (Bld) [Ratio]0.0 %Normal0-0.5 [facility] HospitalComment on above:Performed By: #### RANJAN, CMP, ETOH, CBC, ACET #### [place] [address] USAPlatelet mean volume (Bld) [Entitic vol]7.8 fLNormal 6.3-10.7FChildren's Hospital of ColumbusComment on above:Performed By: #### RANJAN, CMP, ETOH, CBC, ACET #### [place] [address] USAPlatelets (Bld) [#/Vol]253 10*3/mPKjerhg844-420UizxekxwiMercy Health Fairfield HospitalComment on above:Performed By: #### RANJAN, CMP, ETOH, CBC, ACET #### [place] [address] USARBC (Bld) [#/Vol]4.91 10*6/uLNormal3.60-5.00[facility] HospitalComment on above:Performed By: #### RANJAN, CMP, ETOH, CBC, ACET #### [place] [address] USAWBC (Bld) [#/Vol]10.2 10*3/uLNormal4.5-11.0[facility] HospitalComment on above:Performed By: #### RANJAN, CMP, ETOH, CBC, ACET #### [place] [address] USAComprehensive Metabolic Panelon 73-45-0084Qgbcctm [Mass/Vol]4.2 g/dLNormal3.2-5.5FChildren's Hospital of ColumbusComment on above:Performed By: #### RANJAN, CMP, ETOH, CBC, ACET #### [place] [address] USAAlbumin/Globulin [Mass ratio]1.5 {ratio}NormalMercy Health Fairfield HospitalComment on above:Performed By: #### RANJAN, CMP, ETOH, CBC, ACET #### [facility] [address] [place] [address] USAALP [Catalytic activity/Vol]50 U/NOdjxxp02-89CwpiuuuvjMercy Health Fairfield HospitalComment on above:Performed By: #### RANJAN, CMP, ETOH, CBC, ACET #### [place] [address] USAALT [Catalytic activity/Vol]31 U/KFsivkj40-66ZsdmgtbbyMercy Health Fairfield HospitalComment on above:Performed By: #### RANJAN, CMP, ETOH, CBC, ACET #### [place] [address] USAAST [Catalytic activity/Vol]25 U/SGcswip39-40DbfucksxnMercy Health Fairfield HospitalComment on above:Performed By: #### RANJAN, CMP, ETOH, CBC, ACET #### [place] [address] USABilirubin [Mass/Vol]0.5 mg/dLNormal0.3-1.2FChildren's Hospital of ColumbusComment on above:Performed By: #### RANJAN, CMP, ETOH, CBC, ACET #### [place] [address] USACalcium [Mass/Vol]9.2 mg/dLNormal8.2-10.2FChildren's Hospital of ColumbusComment on above:Performed By: #### RANJAN, CMP, ETOH, CBC, ACET #### [place] [address] USAChloride [Moles/Vol]105 mmol/FZnhxtm30-678SvjbdfffjMercy Health Fairfield HospitalComment on above:Performed By: #### RANJAN, CMP, ETOH, CBC, ACET #### [place] [address] USACO2 [Moles/Vol]24.4 mmol/HTltosv71.0-30.0[facility] HospitalComment on above:Performed By: #### RANJAN, CMP, ETOH, CBC, ACET #### [facility] [address] [place] [address] USACreatinine [Mass/Vol]0.94 mg/dLNormal0.44-1.03[facility] HospitalComment on above:Performed By: #### RANJAN, CMP, ETOH, CBC, ACET #### [facility] [address] [place] [address] USACreatinine Clr Calc Vnejqpqh89.12NoCleveland Clinic Marymount HospitalComment on above:Result Comment: PERFORMED BY: [place] [address] PATHOLOGIST ASSISTED LIVING ADMINISTRATOR VIKKI ERICKSON M.D.Performed By: #### RANJAN, CMP, ETOH, CBC, ACET #### [place] [address] USAEstimated GFR ( Celia> 60NoCleveland Clinic Marymount HospitalComment on above:Result Comment: GFR estimated reference range: According to KDOQI guidelines, <60 ml/min/1.73m2 is sufficient to diagnose a patient with chronic kidney disease.Performed By: #### RANJAN, CMP, ETOH, CBC, ACET #### [place] [address] USAEstimated GFR (Non- Am> 60The Jewish HospitalComment on above:Performed By: #### RANJAN, CMP, ETOH, CBC, ACET #### [place] [address] USAGlobulin (S) [Mass/Vol]2.8 g/dLNoCleveland Clinic Marymount HospitalComment on above:Performed By: #### RANJAN, CMP, ETOH, CBC, ACET #### [facility] [address] [place] [address] USAGlucose [Mass/Vol]112 mg/nBTzof90-365GphwbgttfMercy Health Fairfield HospitalComment on above:Result Comment: Random Glucose Reference Range is dependent on time and content of last meal. Glucose of more than 200 mg/dL in a nonstressed, ambulatory subject supports the diagnosis of Diabetes Mellitus. ADA recommended reference rangePerformed By: #### RANJAN, CMP, ETOH, CBC, ACET #### [facility] [address] [place] [address] USAPotassium [Moles/Vol]3.7 mmol/LNormal3.5-5.1FChildren's Hospital of ColumbusComment on above:Performed By: #### RANJAN, CMP, ETOH, CBC, ACET #### [facility] [address] [place] [address] USAProtein [Mass/Vol]7.0 g/dLNormal6.1-7.9[facility] HospitalComment on above:Performed By: #### RANJAN, CMP, ETOH, CBC, ACET #### [place] [address] USASodium [Moles/Vol]139 mmol/PApgclj577-901XjwtodpwhMercy Health Fairfield HospitalComment on above:Performed By: #### RANJAN, CMP, ETOH, CBC, ACET #### [place] [address] USAUrea nitrogen [Mass/Vol]11 mg/dLNormal9-23Mer[facility] HospitalComment on above:Performed By: #### RANJAN, CMP, ETOH, CBC, ACET #### [place] [address] USADrug Screen,Urineon 89-01-6598Kllezlujwgb Screen,Urine NegativeNormalNegativeMercy Health Fairfield HospitalComment on above: Performed By: #### UA, URDS #### [facility] [address] [place] [address] USABarbiturate Screen,UrineNegativeNormalNegativeMercy Health Fairfield HospitalComment on above:Performed By: #### UA, URDS #### [place] [address] USABenzodiazepines Screen,UrineNegativeNormalNegative [facility] HospitalComment on above:Performed By: #### UA, URDS #### [place] [address] USACannabinoid Screen,UrineNegativeNormalNegativeMercy Health Fairfield HospitalComment on above:Result Comment: These are unconfirmed results and should not be used for legal purposes. Drug Cut-Off Concentration: AMPH 1000 ng/mL PARKER 200 ng/mL JOHN 200 ng/mL COCM 300 ng/mL OP 300 ng/mL PCP 25 ng/mL THC 20 ng/mL PERFORMED BY: [place] [address] PATHOLOGIST ASSISTED LIVING ADMINISTRATOR VIKKI ERICKSON M.D.Performed By: #### UA, URDS #### [place] [address] USACocaine Screen,UrineNegativeNormalNegativeMercy Health Fairfield HospitalComment on above:Performed By: #### UA, URDS #### [place] [address] USAOpiate Screen,UrineNegativeNormvtNegJoint Township District Memorial HospitalComment on above:Performed By: #### UA, URDS #### [place] [address] USAPhencyclidine Screen,UrineNegativeNormvtNegJoint Township District Memorial HospitalComment on above:Performed By: #### UA, URDS #### [place] [address] USAECG 12 lead ECGon 62-90-9576RBW 12 lead ECGKETTERING HEALTH TROY [facility] [place] [place] [address] Electrocardiograph Report Signed Patient: Roseann Reynolds MR#: [id number] : 1990 Acct:[id number] Age/Sex: 31 / F ADM Date: 06/25/21 Loc: ER Room: Type: [facility] ER Attending Dr: Ordering Provider: Barney Miles [...] Miles DO 06/25/21 0200 Signed By: 06/25/21 0554NoCleveland Clinic Marymount HospitalEthyl Alcohol Profileon 32-07-9832Ctqbxke [Mass/Vol]mg/dLNoCleveland Clinic Marymount HospitalComment on above:Performed By: #### RANJAN, CMP, ETOH, CBC, ACET #### [facility] [address] [place] [address] USAPercent EthanolNot performedNoCleveland Clinic Marymount HospitalComment on above:Result Comment: PERFORMED BY: [place] [address] PATHOLOGIST ASSISTED LIVING ADMINISTRATOR VIKKI ERICKSON M.D.Performed By: #### RANJAN, CMP, ETOH, CBC, ACET #### [place] [id number] USAGlucose Poct Glucometerson 88-95-9494Vlewmke [Mass/Vol]113 mg/dLNoCleveland Clinic Marymount HospitalComment on above:Result Comment: Random Glucose Reference Range is dependent on time and content of last meal. Glucose of more than 200 mg/dL in a nonstressed, ambulatory subject supports the diagnosis of Diabetes Mellitus. PERFORMED BY: [place] [address] PATHOLOGIST ASSISTED LIVING ADMINISTRATOR VIKKI ERICKSON M.D.Performed By: #### GLULS #### Point of Care testing ,Salicylateon 97-41-6572Tjbttmnbdb< 4.0Low15.0-30.0[facility] HospitalComment on above:Result Comment: Patients treated with Sulfasalazine may generate a false high result for Salicylate. Patients treated with Sulfapyridine may generate a false low result for Salicylate.Performed By: #### RANJAN, CMP, ETOH, CBC, ACET #### [place] [id number] USAUrinalysison 26-31-4115Dpyosmeaez (U)ClearNormalClear [facility] HospitalComment on above:Order Comment: Name Collection Type:: Clean-Voided MidstreamPerformed By: #### UA, URDS #### [facility] [address] [place] [address] USABilirubin,UrineNegativeNormalNegativeMercy Health Fairfield HospitalComment on above:Order Comment: Name Collection Type:: Clean- Voided MidstreamPerformed By: #### UA, URDS #### [facility] [address] [place], [place] [id number] USAColor (U)YellowNormalYellowMercy Health Fairfield HospitalComment on above:Order Comment: Name Collection Type:: Clean-Voided MidstreamPerformed By: #### UA, URDS #### [place] [id number] USAGlucose Ql (U)NormalNormalNormCincinnati VA Medical CenterComment on above:Order Comment: Name Collection Type:: Clean-Voided MidstreamPerformed By: #### UA, URDS #### [facility] [address] [place], [place] [id number] USAKetones Ql (U)NegativeNormalNegJoint Township District Memorial HospitalComment on above:Order Comment: Name Collection Type:: Clean- Voided MidstreamPerformed By: #### UA, URDS #### [facility] [address] [place] [address] USALeukocyte esterase Test strip Ql (U)NegativeNormalNegative [facility] HospitalComment on above:Order Comment: Name Collection Type:: Clean-Voided MidstreamPerformed By: #### UA, URDS #### [facility] [address] [place], [place] [address] USANitrite,UrineNegativeNormalNegativeMercy Health Fairfield HospitalComment on above:Order Comment: Name Collection Type:: Clean- Voided MidstreamPerformed By: #### UA, URDS #### [facility] [address] [place], [place] [address] USAOccult Blood,UrineNegativeNormalNegativeMercy Health Fairfield HospitalComment on above:Order Comment: Name Collection Type:: Clean- Voided MidstreamResult Comment: PERFORMED BY: [place] [address] PATHOLOGIST ASSISTED LIVING ADMINISTRATOR VIKKI ERICKSON M.D.Performed By: #### UA, URDS #### [place] [address] USApH (U)8.0 [pH]Normal5.0-9.0Mer[facility] Fair[facility] HospitalComment on above:Order Comment: Name Collection Type:: Clean-Voided MidstreamPerformed By: #### UA, URDS #### [place] [address] USAProtein,UrineNegativeNormalNegJoint Township District Memorial HospitalComment on above:Order Comment: Name Collection Type:: Clean- Voided MidstreamPerformed By: #### UA, URDS #### [place] [address] USASpecificy Steens,Urine1.789Zvejbm0.001-1.030Mer[facility] Fairfield HospitalComment on above:Order Comment: Name Collection Type:: Clean-Voided MidstreamPerformed By: #### UA, URDS #### [place] [address] USAUrobilinogen,UrineNormalNormalNormCincinnati VA Medical CenterComment on above:Order Comment: Name Collection Type:: Clean- Voided MidstreamPerformed By: #### UA, URDS #### [place] [address] [place] Vital Signs Date TimeVital SignValuePerforming ZfsbtqortNfzqebwz08-01-6213 09:15-0500Body kcfawg026.4 cmYasir Mcmahan MD Work Phone: [facility]11-03-2025 09:15-0500 Body mass index (BMI) [Ratio]41.5 kg/m2Yasir Mcmahan MD Work Phone: [phone]11-03-2025 09:15-0500 Body mnepqsjemwz73.1 [degF]Yasir Mcmahan MD Work Phone: [phone] [place], [place] [address]111-03-2025 09:15-0500 Body onsrja61.61 kgYasir Mcmahan MD Work Phone: [phone]11-03-2025 09:15-0500 Diastolic blood xadagapb639 mm[Hg]Yasir Mcmahan MD Work Phone: [phone]11-03-2025 09:15-0500 Heart rate84 /minYasir Mcmahan MD Work Phone: [phone] [place], [place] [address]-03-2025 09:15-0500 Respiratory rate20 /minYasir Mcmahan MD Work Phone: 1(153)[address] [place], [place] [address]80211-03-2025 09:15-0500 SaO2% (BldA) [Mass fraction]97 %Yasir Mcmahan MD Work Phone: [phone]11-03-2025 09:15-0500 Systolic blood huybnhed225 mm[Hg]Yasir Mcmahan MD Work Phone: [phone] Encounters Encounter DateEncounter TypeCare ProviderFacilityStart: 09-02-2025 End: 45-55-7324stvawoouvkPiak Naderer MD Work Phone: -[facility] ClydeStart: 09-02-2025 End: 93-33-1393Fhaosjx encounter procedureYasir Mcmahan MD-[facility] [place] Work Phone: Start: 02-01-2024 End: 03-54-6195wryihmitpsODOF NADERERNot AvailableStart: 11-03-2023 End: 44-58-5214psuzsqzayaDIUR NADERERNot AvailableStart: 09-04-2022 End: 79-90-5395cjmdemvmnxRO YASIR JIMÉNEZRFacility:Z7Ecmhw: 03-14-2022 End: 08-91-4008zdbtifgsveWL YASIR A NADERERFacility:G0Adyqf: 03-09-2022 End: 15-52-8997svqikausmqKC YASIR A NADERERFacility:U6Jdpia: 02-05-2022 End: 30-58-5302axdwntalfeIF YASIR A NADERERFacility:V3Pbddp: 01-18-2022 End: 61-18-6095djbqyxjjlwYX YASIR A NADERERFacility:H1 Plan of Treatment DateCare ActivityDetailAuthorComprehensive metabolic 2000 panel - Serum or PlasmaCommunity Hospital Payers DatePayer CategoryPayerPolicy [id number] 1991Unknown [id number] [id number] 2.0.1.379128.3.57[id number] 2.0.1.470042.3.57[id number] 2.0.1.072204.3.57[id number] 2.0.1.181101.3.57[id number] 2.0.1.858562.3.57[id number] 2.0.1.742300.3.57[id number] [id number] Social History DateTypeDetailFacilityStart: 21-41-3140Roybhvn smoking status NHISSmokes tobacco daily (finding)[facility]hexFemale (finding)[facility] Northtart: 41-76-3797Dwo Assigned At [facility] Clinical Note 02-05-2022 Note Date & OwrlVftmVhkywrfm76-25-2656 NotePROCEDURE: XR GI UPPER AIR KUB DUAL CONTRAST, XR CINERADIOGRAPHY COMPARISON: [...] Electronically authenticated by: RENETTA ALONZO Date: 2022-02-05 09:52[facility] Clinical Note 02-05-2022 Note Date & JbhcBdqrHxnwlxdv25-80-3522 NotePROCEDURE: XR GI UPPER AIR KUB DUAL CONTRAST, XR CINERADIOGRAPHY COMPARISON: [...] Electronically authenticated by: RENETTA ALONZO Date: 2022-02-05 09:52[facility] Evaluation note Note Date & TypeNoteFacilityEvaluation note* Diagnosis Onset Date Resolution Status Admit Date Annual physical exam acuteNov2024 8:59amBenign essential hypertensionacuteNov2024 8:59amBPPV (benign paroxysmal positional vertigo)acuteNov2024 8:59am [facility] Work Phone: Reason for referral (narrative) Note Date & TypeNoteFacilityReason for referral (narrative)No reason for referral information availableGrand Lake Joint [facility] Work Phone: Summary Purpose Family History Relationship Condition Age at Onset Recorded Date/T pedro father Heart disease Unknown Malignant neoplasmUnknownFamily history of mental disorderUnknowngrandparent History of strokeUnknownmotherHypertensionUnknown Advance Directives Advance Directive Response Recorded Date/ Time Advance Directives No July 31, 2018 9:32am Chief Complaint and Reason for Visit Chief Complaint Admit Date annual visit-FMLA and vertigo September 022024 8:59am Reason for Visit Admit Date Annual physical exam September 02, 2025 8:59am Benign essential hypertension September 022024 8:59am BPPV (benign paroxysmal positional verti go) September 02, 2025 8:59am Additional Source Comments INFORMATION SOURCE (unrecogn ized section and content) DATE CREATED AUTHOR 08/07/2021 [facility] DATE CREATED AUTHOR AUTHOR'S ORGANIZ ATION 09/07/2022 [facility] DATE CREATED AUTHOR AUTHOR'S ORGANIZ ATION 02/02/2024 [facility] EPIC Care Teams (unrecognized sec tion and content) Team Status: Active Member Role/Relationship Status Dates Yasir Mcmahan MD Primary Care Provider Active Team Status: Inactive Member Role/Relationship Status Dates Yasir Mcmahan MD Primary Care Provider Active S tart: September 02, 2025 End: September 02, 2025Yasir Mcmahan MDAttending ProviderActiveStart: September 02, 2025 End: September 02, 2025 Goals (unrecognized section and content) Goals may be documented in a n alternate section FOR RECORDS PERTAINING TO PATIENTS WHO ARE [...] BE BASED ON THE PRIMARY CLINICAL RECORDS. [facility] [employer] provides no warranty or guarantee of the accuracy or completeness of information in this document.
[2025-09-20 12:25] LABS: Alanine Aminotransferase 25 U/L (14-59); Albumin Globulin Ratio 1.1; Albumin Level 3.5 g/dL (3.4-5.0); Alkaline Phosphatase 55 U/L (46-116); Anion Gap 12.1; Aspartate Amino Transferase 15 U/L (15-37); Blood Urea Nitrogen 14.0 mg/dL (7.0-18.0); Calcium 8.6 mg/dL (8.5-10.1); Carbon Dioxide 26.9 mmol/L (21.0-32.0); Chloride 106 mmol/L (98-107); Cholesterol 242 mg/dL (<=200); Estimated GFR (African America >60 (>=60 mL/min/1.73m^2); Estimated GFR (Non-African Ame >60 (>=60 mL/min/1.73m^2); Globulin 3.3 g/dL; Glucose 91 mg/dL (74-106); HDL Cholesterol 49 mg/dL (40-60); Potassium 4.0 mmol/L (3.5-5.1); Sodium 141 mmol/L (136-145); Thyroid Stimulating Hormone 2.104 uIU/mL (0.358-3.740); Total Protein 6.8 g/dL (6.4-8.2); Triglycerides 231 mg/dL (<=150); VLDL CHOLESTEROL 46.2 mg/dL
[2025-09-20 13:07] LABS: Hematocrit 41.9 % (36.0-48.0); Hemoglobin 13.6 g/dL (12.0-16.0); Immature Granulocytes Abs Auto 0.04 10^3/uL (0.00-0.03); Immature Granulocytes Pct Auto 0.6 % (0.0-0.5); Lymphocytes Absolute Auto 1.7 10^3/uL (1.2-3.8); Mean Corpuscular HGB Conc 32.5 g/dL (29.9-35.2); Mean Corpuscular Hemoglobin 28.9 pg (26.7-34.0); Mean Corpuscular Volume 89.1 fL (81.0-99.0); Platelet Count 275 10^3/uL (150-450); Red Blood Count 4.70 10^6/uL (4.20-5.40); White Blood Count 6.2 10^3/uL (4.0-11.0)
== END 2025-09-20 11:18 | disposition home or self-care (01) ==
LOC: LAB 11:22
PROVIDERS: PCP Family Medicine; Visit Provider Family Medicine
DX: Z00.00 Encounter for general adult medical examination without abnormal findings (principal)
CPT/HCPCS: 36415; 80053; 80061; 83036; 84443; 85025